=== PATIENT | male | born 1935 | race Caucasian/White ===

== ENCOUNTER 2017-01-05 07:39 | Day surgery (SDC) | payer OTHER, BC ==
[2016-12-21 13:33] VITALS: BMI 26.6
[2017-01-05] MEDS: CIPROFLOXACIN 0.3% EYE DROPS 5 ML BOTTLE ONE ×3 (08:10→08:20)
[2017-01-05] MEDS: CYCLOPENTOLATE 2% OPHTH SOLN 2 ML BOTTLE ONE ×3 (08:10→08:20)
[2017-01-05] MEDS: TROPICAMIDE 1% OPHTH SOLN 15 ML BOTTLE ONE ×3 (08:10→08:20)
[2017-01-05] MEDS: PHENYLEPHRINE 2.5% OPHTH SOLN 15 ML BOTTLE ONE ×3 (08:10→08:20)
[2017-01-05] MEDS ORDERED: MIDAZOLAM HCL 2 MG/2 ML SINGLE DOSE VIAL ONE (09:56)
[2017-01-05 10:39] VITALS: TEMP 98
--- NOTE | 2017-01-05 10:50 | OP ---
DATE OF OPERATION: 01/05/2017 OPERATIVE PROCEDURE: Lens phacoemulsification with posterior chamber intraocular lens placement, right eye. PREOPERATIVE DIAGNOSIS: Visually significant cataract of right eye. POSTOPERATIVE DIAGNOSIS: Visually significant cataract of right eye. SURGEON: Andrew Pardo MD ANESTHESIA: MAC. ANESTHESIOLOGIST: PROCEDURE: The patient was brought to the operating room and placed under monitored anesthesia care by Anesthesia. A drop of Tetracaine was then placed over the right eye. The patient was then prepped and draped in the usual sterile manner. A speculum was then placed over the right eye. The eye was then well irrigated with copious amounts of BSS (balanced salt solution). The operating microscope was then moved into position. A paracentesis was performed using a 15-degree blade. At this point, 0.5 mL of 1% preservative-free lidocaine was injected into the anterior chamber. Amvisc Plus was then injected into the anterior chamber. A clear corneal incision was then formed using a 2.2-mm keratome. A capsulorrhexis was then performed in a continuous circular fashion beginning with a cystotome completed with a Utrata forceps. Hydrodissection was then performed using BSS on a cannula. The phacoemulsification probe was then introduced through the corneal wound and the cataract was removed using the phacoemulsification-chop technique. Approximately 3 seconds of absolute phacoemulsification time was used. The remaining cortex was then removed using irrigation and aspiration with an I/A probe. The capsule was then filled with regular Amvisc and the capsule was noted to be intact. A previously selected foldable posterior chamber intraocular lens was then injected into the capsule through the corneal wound using a lens injector. It was then dialed into position using a Sinskey hook. The Amvisc was then removed using irrigation and aspiration. Miostat was then injected through the paracentesis to constrict the pupil. The paracentesis and corneal wound were then hydrated and noted to be watertight. A drop of Maxitrol was then placed over the eye. The speculum was removed and clear shield was taped over the eye. The patient tolerated the procedure well and there were no surgical complications. The patient was asked to follow up in my office the next day. ANDREW PARDO M.D. SOHEILA/[id number]
[2017-01-05 10:55] VITALS: BP 128/69; PULSE 55
== END 2017-01-05 11:00 | disposition home or self-care (01) ==
LOC: FASU 07:39
PROVIDERS: ATTEND Ophthalmology
PROC: 08RJ3JZ Replacement of Right Lens with Synthetic Substitute, Percutaneous Approach (ICD-10-PCS; principal; 2017-01-05 10:07)
DX: H26.8 Other specified cataract (principal)

== ENCOUNTER 2017-02-23 06:14 | Day surgery (SDC) | payer OTHER, BC ==
[2017-02-21 11:57] VITALS: BMI 26.6
[2017-02-23] MEDS: PHENYLEPHRINE 2.5% OPHTH SOLN 15 ML BOTTLE ONE ×3 (06:55→07:05)
[2017-02-23] MEDS: CIPROFLOXACIN 0.3% EYE DROPS 5 ML BOTTLE ONE ×3 (06:55→07:05)
[2017-02-23] MEDS: TROPICAMIDE 1% OPHTH SOLN 15 ML BOTTLE ONE ×3 (06:55→07:05)
[2017-02-23] MEDS: CYCLOPENTOLATE 2% OPHTH SOLN 2 ML BOTTLE ONE ×3 (06:55→07:05)
[2017-02-23] MEDS ORDERED: CYCLOPENTOLATE 2% OPHTH SOLN 2 ML BOTTLE ONE (07:05)
[2017-02-23] MEDS ORDERED: CIPROFLOXACIN 0.3% EYE DROPS 5 ML BOTTLE ONE (07:05)
[2017-02-23] MEDS ORDERED: PHENYLEPHRINE 2.5% OPHTH SOLN 15 ML BOTTLE ONE (07:05)
[2017-02-23] MEDS ORDERED: TROPICAMIDE 1% OPHTH SOLN 15 ML BOTTLE ONE (07:05)
[2017-02-23] MEDS ORDERED: TETRACAINE 0.5% OPHTH SOLN 2 ML BOTTLE ONE (07:26)
[2017-02-23] MEDS ORDERED: CARBACHOL 0.01% INTRA-OCULAR 1.5 ML VIAL ONE (07:26)
[2017-02-23] MEDS ORDERED: BSS (NA/CA/MG/K) BALANCED SALT SOLUTION OPHTH SOLN 15 ML BOTTLE ONE (07:26)
[2017-02-23] MEDS ORDERED: LIDOCAINE 1% P/F 10 MG/ML VIAL ONE (07:26)
[2017-02-23] MEDS ORDERED: NEO/POLYMYX B SULF/DEXAMETH OPHTHALMIC 5ML BOTTLE ONE (07:26)
[2017-02-23] MEDS ORDERED: MIDAZOLAM HCL 2 MG/2 ML SINGLE DOSE VIAL ONE (08:19)
[2017-02-23 09:11] VITALS: BP 135/80; PULSE 62; TEMP 98
--- NOTE | 2017-02-23 10:04 | OP ---
DATE OF OPERATION: 02/23/2017 OPERATIVE PROCEDURE: Lens Phacoemulsification with Posterior Chamber Intraocular Lens Placement Left Eye PREOPERATIVE DIAGNOSIS: Visually Significant Cataract of Left Eye POSTOPERATIVE DIAGNOSIS: Visually Significant Cataract of Left Eye SURGEON: Andrew Pardo M.D. ANESTHESIA: MAC PROCEDURE: The patient was brought to the operating room and placed under monitored anesthesia care by Anesthesia. A drop of Tetracaine was then placed over the left eye. The patient was then prepped and draped in the usual sterile manner. A speculum was then placed over the left eye. The eye was then well irrigated with copious amounts of BSS (balanced salt solution). The operating microscope was then moved into position. A paracentesis was performed using a 15 degree blade. At this point 0.5 mL of 1% preservative-free lidocaine was injected into the anterior chamber. Amvisc plus was then injected into the anterior chamber. A clear corneal incision was then formed using a 2.2 mm keratome. A capsulorrhexis was then performed in a continuous circular fashion beginning with a cystotome, completed with an Utratas forceps. Hydrodissection was then performed using BSS on a cannula. The phaco probe was then introduced through the corneal wound and the cataract was removed using the phaco chop technique. Approximately 3 seconds of absolute phaco time was used. The remaining cortex was then removed using irrigation and aspiration with an I/A probe. The capsule was then filled with regular Amvisc and the capsule was noted to be intact. A previously selected foldable posterior chamber intraocular lens was then injected into the capsule through the corneal wound using a lens injector. It was then dialed into position using a Sinskey hook. The Amvisc was then removed using irrigation and aspiration. Miostat was then injected through the paracentesis to constrict the pupil. The paracentesis and corneal wound were then hydrated and noted to be water tight. A drop of Maxitrol was then placed over the eye. The speculum was removed and clear shield was taped over the eye. The patient tolerated the procedure well and there were no surgical complications. The patient was asked to follow up in my office the next day. ANDREW PARDO M.D. SOHEILA/[id number]
== END 2017-02-23 09:12 | disposition home or self-care (01) ==
LOC: FASU 06:14
PROVIDERS: ATTEND Ophthalmology
PROC: 08RK3JZ Replacement of Left Lens with Synthetic Substitute, Percutaneous Approach (ICD-10-PCS; principal; 2017-02-23 08:24)
DX: H26.8 Other specified cataract (principal)

== ENCOUNTER 2020-02-13 10:38 | Emergency (ER) | payer OTHER, BC ==
[2020-02-13 10:49] VITALS: TEMP 98.5; BMI 26.6
--- OUTSIDE RECORDS SUMMARY | 2020-02-13 10:53 | XMS ---
:1935 Author Organization [facility] Support Name Relationship Address Phone RE Unavailable Unavailable Unavailable JENNY HOLDEN [address] [id number] [address] Re-disclosure Warning The records that you are about to access may contain information from federally- assisted alcohol or drug abuse programs. If such information is present, then the following federally mandated warning applies: This information has been disclosed to you from records protected by federal confidentiality rules (42 CFR part 2). The federal rules prohibit you from making any further disclosure of this information unless further disclosure is expressly permitted by the written consent of the person to whom it pertains or as otherwise permitted by 42 CFR part 2. A general authorization for the release of medical or other information is NOT sufficient for this purpose. The Federal rules restrict any use of the information to criminally investigate or prosecute any alcohol or drug abuse patient.The records that you are about to access may contain highly sensitive health information, the redisclosure of which is protected by Article 27-F of the [facility] Public Health law. If you continue you may haveaccess to information: Regarding HIV / AIDS; Provided by facilities licensed or operated by the [facility] Office of Mental Health; or Provided by the [facility] Office for People With Developmental Disabilities. If such information is present, then the following [facility] mandated warning applies: This information has been disclosed to you from confidential records which are protected by state law. State law prohibits you from making any further disclosure of this information without the specific written consent of the person to whom it pertains, or as otherwise permitted by law. Any unauthorized further disclosure in violation of state law may result in a fine or mcfp sentence or both. A general authorization for the release of medical or other information is NOT sufficient authorization for further disclosure. Insurance Providers Payer name Policy type Policy ID Covered Covered alliance party's Policy P shruti / Coverage alliance party ID relationship to [employer] ormation type nelson BC PPO [id number] SP [id number] MEDICARE [id number] SP [id number]
--- NOTE | 2020-02-13 11:08 | PDOC ---
History of Present Illness - General Chief Complaint: Injury Stated Complaint: fall Time Seen by Provider: 02/13/20 10:47 - History of Present Illness Initial Comments: 02/13/20 11:11 Chief complaint: Fall, with injuries to the head and finger HPI: Patient was in the parking lot at his residence, walking home from town, tripped and struck his head and finger against a parked car. Denies lightheadedness, dizziness, vertigo, loss of consciousness, or residual thought or memory disturbance. Review of systems: Denies fever/chills, URI symptoms, sore throat, cough, chest pain, shortness of breath, abdominal pain, nausea, vomiting, diarrhea, visual or focal neurologic symptoms, unsteadiness of gait, hematemesis, melena, bloody stool, urinary tract symptoms. Admits chronic wheezing for which he uses an inhaler, no exacerbation recently. 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 High blood pressure. Elevated cholesterol. COPD. Dementia. History: Mild dementia, under neurologic evaluation as an outpatient. Lives at home with his , who is healthy. Takes care of himself. Goes out for walks daily. Smoked earlier in life, none recently. No alcohol or other drugs. No sedatives hypnotics. Family history: Reviewed and noncontributory Physical exam: Mildly confused but oriented to person and place, cooperative, coherent. Denies headache, neck pain, or pain in his finger. Afebrile, vital signs normal Head: Large abrasion of the right frontal scalp. No punctures or laceration. No swelling, induration, or hematoma below the abrasion. Large contusion, hematoma of the right lower forehead extending to the right superior orbit and upper eyelid. No palpable deformity or crepitus of the orbit itself. V2 sensation is intact. PERRLA 3 mm, fundi benign with sharp disc margins and good central venous pulsations. ENT clear. No other visible or palpable deformities or injuries to the facial structure. Neck without point tenderness or deformity. No spasm. Full range of motion without limitation or pain. No bruits masses or nodes Lungs: Bilateral end expiratory wheezes, mild to moderate, but no tachypnea or dyspnea. No chest wall or rib cage deformity or tenderness CV audible rumble in the area of the mitral valve. No murmurs rubs or gallops. 90 and regular. Pulses full and symmetric. No edema. No JVD. No bruits. Abdomen soft nontender without mass organomegaly. Bowel sounds normal. Nondistended. No CVAT. Spine and pelvis without point tenderness or deformity. Avulsion type laceration of the right third finger, distal phalanx, volar pulp, not involving the nail or the DIP joint. Full flexion of the DIP against resistance. Full extension against resistance. Capillary refill intact. No sensory deficit to the fingertip Extremities: No visible or palpable signs of trauma. Full range of motion of the shoulders elbows wrists hips knees and ankles without limitation or pain. Neurological C2 to 12 intact. Generalized weakness but no focal sensory or motor deficits. Mild confusion consistent with dementia, which is unchanged according to his . Assessment: Fall, mechanical, no suggestion of acute cardiac or neurologic event. Contusions and abrasions to the face and scalp. Laceration to the finger. Plan: CBC, chemistries, cardiac enzymes, EKG, chest x-ray, repair of laceration, observation, further evaluation depending on results of studies. Past History - Medical History Allergies/Adverse Reactions: Allergies Allergy/AdvReac Type Severity Reaction Status Date / Time No Known Allergies Allergy Verified 02/13/20 10:39 Home Medications: Ambulatory Orders Cholecalciferol (Vitamin D3) [Vitamin D3 -] 1,000 unit PO DAILY 12/21/16 Dabigatran Etexilate Mesylate [Pradaxa -] 75 mg PO BID 12/21/16 Ferrous Gluconate [Fergon -] 324 mg PO DAILY 12/21/16 Metoprolol Succinate [Toprol XL -] 25 mg PO DAILY 12/21/16 Metoprolol Succinate [Toprol XL -] 50 mg PO HS 12/21/16 Thiamine HCl [Vitamin B-1] 100 mg PO DAILY 12/21/16 Anemia: No Asthma: No Cancer: No Cardiac Disorders: Yes ( valves sx) CVA: No COPD: No CHF: No Dementia: No Diabetes: No GI Disorders: No Disorders: No HTN: Yes Hypercholesterolemia: No Liver Disease: No Seizures: No Thyroid Disease: No - Surgical History Abdominal Surgery: No Appendectomy: No Cardiac Surgery: Yes (valves) Cholecystectomy: No Lung Surgery: No Neurologic Surgery: No Orthopedic Surgery: No - Psycho-Social/Smoking History Smoking History: Never smoked Have you smoked in the past 12 months: No If you are a former smoker, when did you quit?: 40 yrs ago - Substance Abuse Hx (Audit-C & DAST Scrn) How often the patient has a drink containing alcohol: Never Score: In Men: 4 or > Positive; In Women: 3 or > Positive: 0 Screen Result (Pos requires Nsg. Audit-10AR): Negative In the last yr the pt used illegal drug/Rx for NonMed reason: No Score: Yes response is considered Positive: 0 Screen Result (Positive result requires Nsg. DAST-10): Negative *Physical Exam - Vital Signs Last Vital Signs Temp Pulse Resp BP Pulse Ox 98.5 F 65 18 163/84 98 02/13/20 10:38 02/13/20 10:38 02/13/20 10:38 02/13/20 10:38 02/13/20 10:38 ED Treatment Course - LABORATORY CBC & Chemistry Diagram: 02/13/20 11:19 02/13/20 11:10 Medical Decision Making - Medical Decision Making 02/13/20 15:27 EKG: Normal sinus rhythm 62/min. Normal axes and intervals. No ST-T wave changes. Normal EKG Chest x-ray: COPD, chronic lung changes, no acute infiltrates or effusions Head CT: Negative for acute trauma. Atrophy with other chronic changes are present Laboratory: Troponin negative. Only significant abnormality is a white count of 22,000, most likely due to the stress of trauma. There appears to be no symp toms or sign of infection. Patient and were informed of the abnormal white count, told it was likely due to stress but there was a small chance of an occult infection, and that it should be repeated in 24 hours by primary physician. They agreed to call Dr. Carreon, transmit information and obtain repeat white blood count. If unsuccessful, instructed to return to the emergency room. Patient's forehead abrasion was cleansed with normal saline, dressed with bacitracin. He is instructed to use ice on the hematoma. Procedure note: Repair of laceration right third finger. Digital block 1% lidocaine plain, good anesthesia provided Wound was thoroughly scrubbed and irrigated with normal saline. Minimal debridement of devitalized skin was performed, with sharp and vital wound margins. Wound was explored and found to be superficial. There was no exposed bone or other deep structure, and no deep punctures. Skin was closed with 4-0 nylon interrupted sutures. Dressed with bacitracin, 2 x 2, and tube gauze. Instructed to change the dressing in 3 days. Return immediately if there is sign of infection. Otherwise return for suture removal in 10 days. Head injury instructions were given. To return to the ER if further symptoms develop. Fully alert and ambulatory, in no pain or other distress at discharge with to follow-up as directed Discharge - Discharge Information Problems reviewed: Yes Clinical Impression/Diagnosis: Head injury Qualifiers: Encounter type: initial encounter Qualified Code(s): S09.90XA - Unspecified injury of head, initial encounter Finger laceration Qualifiers: Encounter type: initial encounter Finger: middle finger Damage to nail status: without damage Foreign body presence: without foreign body Laterality: right Qualified Code(s): S61.212A - Laceration without foreign body of right middle finger without damage to nail, initial encounter Condition: Improved Disposition: HOME - Admission No - Follow up/Referral Referrals: Brisa Carreon [Primary Care Provider] - 2 Days - Patient Discharge Instructions Patient Printed Discharge Instructions: DI for Laceration Repair -- Simple, DI for Closed Head Injury Additional Instructions: Keep finger clean and dry. Change dressing in 3 days. Return to ER for wound check if there is sign of infection, such as increased pain, swelling, redness, warmth, or drainage. If the wound is healing well, return in 10 days for removal of sutures. Head injury instructions as prescribed Continue to use ice intermittently today on the forehead and scalp. Wound care of the abrasion as discussed. Your laboratory work showed an elevated white blood count of 22,000+. This is most likely due to the stress of your injury. There does not seem to be any obvious sign of infection. However, it is important that your white blood count be rechecked in 1 to 2 days by your primary physician to make sure it has decreased to a normal value and no sign of infection has developed. - Post Discharge Activity
[2020-02-13 11:52] LABS: PLATELET COUNT 351 K/MM3 (134-434)
[2020-02-13 11:58] LABS: HEMATOCRIT 42.6 % (35.4-49); HEMOGLOBIN 14.5 GM/dl (11.7-16.9); MCH 30.5 pg (25.7-33.7); MEAN CELL VOLUME 89.7 fl (80-96); MEAN PLT VOLUME 8.4 fl (7.5-11.1); RBC 4.75 M/mm3 (4.00-5.60); RDW 13.5 % (11.9-15.9); WHITE BLOOD COUNT 22.4 K/mm3 (4.0-10.8)
[2020-02-13 11:59] LABS: ALK PHOS 60 U/L (45-117); ANION GAP 7 MMOL/L (8-16); BILIRUBIN,TOTAL 1.2 mg/dl (0.2-1); CALCIUM 8.8 mg/dl (8.5-10); CHLORIDE 104 mmol/L (98-107); CO2 26 mmol/L (21-32); CREATININE 1.1 mg/dl (0.55-1.3); GLUCOSE,RANDOM 116 mg/dl (74-106); POTASSIUM 4.4 mmol/L (3.5-5.1); SGOT/AST 26 U/L (15-37); SGPT/ALT 17 U/L (13-61); SODIUM 137 mmol/L (136-145); TOT PROT 7.1 g/dl (6.4-8.2)
[2020-02-13] MEDS ORDERED: ACETAMINOPHEN 325 MG TABLET (FP) ONE (12:22)
[2020-02-13] MEDS ORDERED: ACETAMINOPHEN 325 MG TABLET (FP) PO ONE (12:25)
[2020-02-13 13:51] VITALS: BP 161/76; PULSE 60
[2020-02-13 14:10] LABS: PLATELET ESTIMATE ADEQUATE
--- NOTE | 2020-02-14 11:50 | EKG ---
Test Reason : Blood Pressure : / mmHG Vent. Rate : 062 BPM Atrial Rate : 062 BPM P-R Int : 166 ms QRS Dur : 086 ms QT Int : 420 ms P-R-T Axes : 007 -15 030 degrees QTc Int : 426 ms POOR DATA QUALITY, INTERPRETATION MAY BE ADVERSELY AFFECTED NORMAL SINUS RHYTHM NORMAL ECG NO PREVIOUS ECGS AVAILABLE Confirmed by LYLY BARRERA MD ([id number]) on 02/14/2020 11:49:53 AM Referred By: TOM FORTUNE Confirmed By:LYLY BARRERA MD
== END 2020-02-13 13:44 | disposition home or self-care (01) ==
LOC: FER 10:38
DX: S09.90XA Unspecified injury of head, initial encounter (principal); S61.212A Laceration without foreign body of right middle finger without damage to nail, initial encounter
CPT/HCPCS: 36415; 70450-TC; 71045-TC-FY; 80053; 82550; 84484; 85025; 93005; 99284-25

== ENCOUNTER 2021-01-28 15:27 | Inpatient (IN) | payer OTHER, BC ==
[2021-01-28 15:59] VITALS: BMI 27.3
[2021-01-28] MEDS ORDERED: DIPHTH,PERTUSS(ACELL),TET 0.5 ML DISP.SYRIN IM ONE ×2 (16:58→17:00)
[2021-01-28] MEDS ORDERED: LACTATED RINGERS SOLUTION 1000 ML INFUS.BAG IV ONE ×2 (17:03→19:01)
[2021-01-28 17:31] LABS: HEMATOCRIT 41.7 % (35.4-49); HEMOGLOBIN 13.9 GM/dL (11.7-16.9); MCH 29.9 pg (25.7-33.7); MCHC 33.2 g/dl (32.0-35.9); MEAN CELL VOLUME 90.1 fl (80-96); MEAN PLT VOLUME 8.8 fl (7.5-11.1); PLATELET COUNT 199 10^3/uL (134-434); RBC 4.63 M/mm3 (4.00-5.60); RDW 14.5 % (11.9-15.9); WHITE BLOOD COUNT 18.8 K/mm3 (4.0-10.0)
[2021-01-28 17:36] LABS: INR 1.2 (0.83-1.09); PROTHROMBIN TIME (PATIENT) 14.1 SEC (9.7-13.0)
[2021-01-28 17:38] LABS: ACTIVATED PTT 26.7 SECONDS (25.2-36.5)
[2021-01-28 17:51] LABS: CHLORIDE 112 mmol/L (98-107); SODIUM 148 mmol/L (136-145)
[2021-01-28 17:53] LABS: CALCIUM 10.1 mg/dL (8.5-10.1)
[2021-01-28 17:54] LABS: ALBUMIN 3.4 g/dl (3.4-5.0); ANION GAP 13 MMOL/L (8-16); BLOOD UREA NITROGEN 34.2 mg/dL (7-18); CO2 23 mmol/L (21-32); GLUCOSE,RANDOM 112 mg/dL (74-106); MAGNESIUM 2.6 mg/dL (1.8-2.4)
[2021-01-28 17:57] LABS: CREATININE 1.6 mg/dL (0.55-1.3); PHOSPHOROUS 2.2 mg/dL (2.5-4.9); SGOT/AST 192 U/L (15-37); SGPT/ALT 41 U/L (13-61)
[2021-01-28 17:58] LABS: TOT PROT 7.2 g/dl (6.4-8.2)
[2021-01-28 18:00] LABS: ALK PHOS 61 U/L (45-117)
[2021-01-28 18:37] LABS: ANISOCYTOSIS 1+; MACROCYTOSIS 0; PLATELET ESTIMATE NORMAL
[2021-01-28] MEDS ORDERED: ASPIRIN 81 MG CHEWABLE TABLETS PO ONE (19:01)
[2021-01-28] MEDS ORDERED: HALOPERIDOL LACTATE 5 MG/ML IM PRN (19:02)
[2021-01-28] MEDS ORDERED: HALOPERIDOL LACTATE 5 MG/ML ONE (19:02)
[2021-01-28 20:20] LABS: EPI CELLS 6 /uL (0-25.1); HYALINE CASTS 6 /uL (0-3.1); PH,URINE 5.5 (5.0-8.0); URINE APPEARANCE CLOUDY; URINE BACTERIA 0 /uL (0-1359); URINE BILIRUBIN 1+ (NEGATIVE); URINE COLOR ORANGE; URINE GLUCOSE (UA) NEGATIVE (NEGATIVE); URINE KETONE TRACE (NEGATIVE); URINE LEUK ESTERASE 1+ (NEGATIVE); URINE NITRITE NEGATIVE (NEGATIVE); URINE PROTEIN 3+ (NEGATIVE); URINE UROBILINOGEN 0.2 mg/dL (0.2-1.0); URINE WBC 6 /uL (0-25.8)
[2021-01-28] MEDS ORDERED: ASPIRIN 81 MG CHEWABLE TABLETS ONE (20:26)
[2021-01-28 20:35] LABS: BILIRUBIN,DIRECT 0.6 mg/dL (0.0-0.2)
[2021-01-28 21:54] LABS: URINE RBC 75.3 /uL (0-23.9); YEAST moderate (NEGATIVE)
[2021-01-28 22:47] LABS: CALCIUM 9.4 mg/dL (8.5-10.1)
[2021-01-28 22:48] LABS: BLOOD UREA NITROGEN 35.3 mg/dL (7-18)
[2021-01-28 22:51] LABS: CREATININE 1.6 mg/dL (0.55-1.3)
[2021-01-29] MEDS ORDERED: LACTATED RINGERS SOLUTION 1,000 ML/1,000 ML INFUS.BAG IV SCH (03:15)
[2021-01-29 06:04] LABS: BASO % 0.1 % (0-2.0); CHOLESTEROL 164 mg/dL (50-200); HEMATOCRIT 40.9 % (35.4-49); HEMOGLOBIN 13.6 GM/dL (11.7-16.9); LYMPH % 6.5 % (8-40); MCH 30.3 pg (25.7-33.7); MCHC 33.2 g/dl (32.0-35.9); MEAN CELL VOLUME 91.4 fl (80-96); MEAN PLT VOLUME 8.8 fl (7.5-11.1); MONO % 8.1 % (3.8-10.2); NEUT % 85.3 % (42.8-82.8); PLATELET COUNT 188 10^3/uL (134-434); RBC 4.48 M/mm3 (4.00-5.60); RDW 14.5 % (11.9-15.9); TRIGLYCERIDES 100 mg/dL (0-150); WHITE BLOOD COUNT 15.9 K/mm3 (4.0-10.0)
[2021-01-29 06:05] LABS: LDL CHOLESTEROL (ONLY SJRH) 80 mg/dL (5-100)
[2021-01-29 06:06] LABS: INR 1.11 (0.83-1.09)
[2021-01-29 06:07] LABS: HDL CHOLESTEROL 72 mg/dL (40-60)
[2021-01-29 07:39] LABS: CHLORIDE 112 mmol/L (98-107); SODIUM 146 mmol/L (136-145)
[2021-01-29 07:40] LABS: ALBUMIN 3.1 g/dl (3.4-5.0); ALK PHOS 57 U/L (45-117); ANION GAP 11 MMOL/L (8-16); BILIRUBIN,TOTAL 2.7 mg/dL (0.2-1); BLOOD UREA NITROGEN 35.1 mg/dL (7-18); CALCIUM 9.3 mg/dL (8.5-10.1); CO2 23 mmol/L (21-32); CREATININE 1.5 mg/dL (0.55-1.3); GLUCOSE,RANDOM 116 mg/dL (74-106); MAGNESIUM 2.1 mg/dL (1.8-2.4); SGOT/AST 498 U/L (15-37); SGPT/ALT 82 U/L (13-61); TOT PROT 6.6 g/dl (6.4-8.2)
[2021-01-29] MEDS: CEFTRIAXONE 1 GM in DEXTROSE 5%-WATER - 50 ML IVPB SCH ×2 (09:17→09:25)
[2021-01-29] MEDS: HEPARIN NA (PORCINE) 5,000 UNITS/ML 1ML VIAL SQ SCH ×4 (09:18→21:51)
[2021-01-29] MEDS ORDERED: cefTRIAXone SODIUM 1 GM VIAL ONE (09:20)
[2021-01-29] MEDS ORDERED: DEXTROSE 5%-WATER - 50 ML IVPB ONE (09:21)
[2021-01-29] MEDS: ESCITALOPRAM OXALATE 20 MG TABLET PO SCH (09:24)
[2021-01-29] MEDS ORDERED: SODIUM CHLORIDE 0.45% 1,000 ML IV SCH (12:45)
[2021-01-29] MEDS ORDERED: GALANTAMINE HBR 12 MG PO SCH (14:15)
[2021-01-30] MEDS: HEPARIN NA (PORCINE) 5,000 UNITS/ML 1ML VIAL SQ SCH ×3 (06:46→21:49)
[2021-01-30] MEDS: busPIRone HCL 10 MG TABLET (FP) PO SCH ×3 (06:47→21:49)
[2021-01-30 07:20] LABS: BASO % 0.2 % (0-2.0); HEMATOCRIT 41.2 % (35.4-49); HEMOGLOBIN 13.6 GM/dL (11.7-16.9); LYMPH % 6.7 % (8-40); MCH 30.5 pg (25.7-33.7); MCHC 33.1 g/dl (32.0-35.9); MEAN CELL VOLUME 92.2 fl (80-96); MEAN PLT VOLUME 9.2 fl (7.5-11.1); MONO % 8.2 % (3.8-10.2); NEUT % 84.9 % (42.8-82.8); PLATELET COUNT 198 10^3/uL (134-434); RBC 4.47 M/mm3 (4.00-5.60); RDW 14.6 % (11.9-15.9)
[2021-01-30 08:05] LABS: ALBUMIN 2.8 g/dl (3.4-5.0)
[2021-01-30 08:07] LABS: BLOOD UREA NITROGEN 37.4 mg/dL (7-18)
[2021-01-30 08:10] LABS: BILIRUBIN,TOTAL 2.1 mg/dL (0.2-1); CREATININE 1.2 mg/dL (0.55-1.3); PHOSPHOROUS 3.1 mg/dL (2.5-4.9); TOT PROT 6.2 g/dl (6.4-8.2)
[2021-01-30 08:12] LABS: MAGNESIUM 2.3 mg/dL (1.8-2.4)
[2021-01-30] MEDS ORDERED: cefTRIAXone SODIUM 1 GM VIAL ONE (08:19)
[2021-01-30] MEDS ORDERED: DEXTROSE 5%-WATER - 50 ML IVPB ONE (08:20)
[2021-01-30] MEDS: CEFTRIAXONE 1 GM in DEXTROSE 5%-WATER - 50 ML IVPB SCH (09:29)
[2021-01-30] MEDS: ESCITALOPRAM OXALATE 20 MG TABLET PO SCH (09:30)
[2021-01-30] MEDS: TAMSULOSIN HCL 0.4 MG CAP PO SCH (13:39)
[2021-01-30] MEDS ORDERED: METOPROLOL TARTRATE 5 MG/5 ML VIAL IVPUSH PRN (16:17)
[2021-01-30] MEDS ORDERED: METOPROLOL TARTRATE 5 MG/5 ML VIAL ONE (16:30)
[2021-01-30] MEDS ORDERED: dilTIAZem HCL 50 MG/10 ML - 10 ML VIAL IVPUSH ONE (18:58)
[2021-01-31] MEDS: HEPARIN NA (PORCINE) 5,000 UNITS/ML 1ML VIAL SQ SCH ×3 (05:30→21:58)
[2021-01-31] MEDS: busPIRone HCL 10 MG TABLET (FP) PO SCH ×3 (05:30→21:58)
[2021-01-31 08:27] LABS: HEMATOCRIT 39.3 % (35.4-49); HEMOGLOBIN 13.2 GM/dL (11.7-16.9); MCH 30.3 pg (25.7-33.7); MCHC 33.6 g/dl (32.0-35.9); MEAN CELL VOLUME 90.4 fl (80-96); MEAN PLT VOLUME 9.1 fl (7.5-11.1); PLATELET COUNT 182 10^3/uL (134-434); RBC 4.35 M/mm3 (4.00-5.60); RDW 14.6 % (11.9-15.9); WHITE BLOOD COUNT 12.6 K/mm3 (4.0-10.0)
[2021-01-31 08:47] LABS: ALBUMIN 2.5 g/dl (3.4-5.0); CALCIUM 8.3 mg/dL (8.5-10.1)
[2021-01-31 08:48] LABS: BLOOD UREA NITROGEN 39.5 mg/dL (7-18); MAGNESIUM 2.2 mg/dL (1.8-2.4); PHOSPHOROUS 3.1 mg/dL (2.5-4.9)
[2021-01-31 08:50] LABS: BILIRUBIN,TOTAL 1.3 mg/dL (0.2-1); CREATININE 1.1 mg/dL (0.55-1.3); TOT PROT 6.1 g/dl (6.4-8.2)
[2021-01-31] MEDS ORDERED: DEXTROSE 5%-WATER - 50 ML IVPB ONE (09:43)
[2021-01-31] MEDS ORDERED: cefTRIAXone SODIUM 1 GM VIAL ONE (09:43)
[2021-01-31] MEDS: CEFTRIAXONE 1 GM in DEXTROSE 5%-WATER - 50 ML IVPB SCH (10:27)
[2021-01-31] MEDS: ESCITALOPRAM OXALATE 20 MG TABLET PO SCH (10:28)
[2021-01-31] MEDS: PANTOPRAZOLE 20 MG TABLET PO SCH (10:28)
[2021-01-31] MEDS: ASPIRIN 81 MG CHEWABLE TABLETS PO SCH (10:29)
[2021-01-31] MEDS: TAMSULOSIN HCL 0.4 MG CAP PO SCH (10:29)
[2021-01-31 11:59] LABS: PLATELET ESTIMATE ADEQUATE
[2021-01-31] MEDS: metoPROLOL SUCCINATE 25 MG TAB.SR.24H (FP) PO SCH (17:49)
[2021-02-01] MEDS: HEPARIN NA (PORCINE) 5,000 UNITS/ML 1ML VIAL SQ SCH ×3 (05:09→21:26)
[2021-02-01] MEDS: busPIRone HCL 10 MG TABLET (FP) PO SCH ×3 (05:09→21:26)
[2021-02-01] MEDS: metoPROLOL SUCCINATE 25 MG TAB.SR.24H (FP) PO SCH (10:12)
[2021-02-01] MEDS: ASPIRIN 81 MG CHEWABLE TABLETS PO SCH (10:12)
[2021-02-01] MEDS: TAMSULOSIN HCL 0.4 MG CAP PO SCH (10:12)
[2021-02-01] MEDS: ESCITALOPRAM OXALATE 20 MG TABLET PO SCH (10:12)
[2021-02-01] MEDS: PANTOPRAZOLE 20 MG TABLET PO SCH (10:12)
[2021-02-02] MEDS: HEPARIN NA (PORCINE) 5,000 UNITS/ML 1ML VIAL SQ SCH ×3 (05:28→21:45)
[2021-02-02] MEDS: busPIRone HCL 10 MG TABLET (FP) PO SCH ×3 (05:28→21:43)
[2021-02-02 08:38] LABS: BASO % 0.2 % (0-2.0); EOS % 0.6 % (0-4.5); HEMATOCRIT 39.6 % (35.4-49); HEMOGLOBIN 13.2 GM/dL (11.7-16.9); LYMPH % 9.1 % (8-40); MCH 30.3 pg (25.7-33.7); MCHC 33.4 g/dl (32.0-35.9); MEAN CELL VOLUME 90.7 fl (80-96); MEAN PLT VOLUME 9.1 fl (7.5-11.1); MONO % 8.9 % (3.8-10.2); NEUT % 81.2 % (42.8-82.8); PLATELET COUNT 189 10^3/uL (134-434); RBC 4.36 M/mm3 (4.00-5.60); RDW 13.9 % (11.9-15.9); WHITE BLOOD COUNT 13.3 K/mm3 (4.0-10.0)
[2021-02-02 08:54] LABS: CALCIUM 8.7 mg/dL (8.5-10.1)
[2021-02-02 08:55] LABS: ALBUMIN 2.3 g/dl (3.4-5.0); BLOOD UREA NITROGEN 30.2 mg/dL (7-18)
[2021-02-02 09:00] LABS: BILIRUBIN,TOTAL 1.6 mg/dL (0.2-1)
[2021-02-02] MEDS: PANTOPRAZOLE 20 MG TABLET PO SCH (09:00)
[2021-02-02] MEDS: TAMSULOSIN HCL 0.4 MG CAP PO SCH (09:00)
[2021-02-02] MEDS: ESCITALOPRAM OXALATE 20 MG TABLET PO SCH (09:00)
[2021-02-02] MEDS: ASPIRIN 81 MG CHEWABLE TABLETS PO SCH (09:00)
[2021-02-02] MEDS: metoPROLOL SUCCINATE 25 MG TAB.SR.24H (FP) PO SCH (09:00)
[2021-02-03] MEDS: busPIRone HCL 10 MG TABLET (FP) PO SCH ×3 (06:07→21:21)
[2021-02-03] MEDS: HEPARIN NA (PORCINE) 5,000 UNITS/ML 1ML VIAL SQ SCH ×3 (06:08→21:22)
[2021-02-03 07:03] LABS: BASO % 0.3 % (0-2.0); EOS % 1.2 % (0-4.5); HEMATOCRIT 40.5 % (35.4-49); HEMOGLOBIN 13.5 GM/dL (11.7-16.9); LYMPH % 11.9 % (8-40); MCH 30.5 pg (25.7-33.7); MCHC 33.5 g/dl (32.0-35.9); MEAN CELL VOLUME 91.2 fl (80-96); MEAN PLT VOLUME 9.4 fl (7.5-11.1); MONO % 8.1 % (3.8-10.2); NEUT % 78.5 % (42.8-82.8); PLATELET COUNT 191 10^3/uL (134-434); RBC 4.44 M/mm3 (4.00-5.60); RDW 14.2 % (11.9-15.9); WHITE BLOOD COUNT 9.4 K/mm3 (4.0-10.0)
[2021-02-03 07:27] LABS: ALBUMIN 2.2 g/dl (3.4-5.0); BLOOD UREA NITROGEN 26.4 mg/dL (7-18); CALCIUM 9.2 mg/dL (8.5-10.1)
[2021-02-03 07:28] LABS: MAGNESIUM 1.7 mg/dL (1.8-2.4)
[2021-02-03 07:31] LABS: CREATININE 0.9 mg/dL (0.55-1.3)
[2021-02-03 07:32] LABS: BILIRUBIN,TOTAL 1.2 mg/dL (0.2-1); TOT PROT 5.9 g/dl (6.4-8.2)
[2021-02-03] MEDS ORDERED: MAGNESIUM SULF 50% (8.12 MEQ/2 ML-1 GM VIAL) IVPB ONE (07:55)
[2021-02-03] MEDS: TAMSULOSIN HCL 0.4 MG CAP PO SCH (08:54)
[2021-02-03] MEDS: PANTOPRAZOLE 20 MG TABLET PO SCH (09:07)
[2021-02-03] MEDS: metoPROLOL SUCCINATE 25 MG TAB.SR.24H (FP) PO SCH (09:07)
[2021-02-03] MEDS: ESCITALOPRAM OXALATE 20 MG TABLET PO SCH (09:07)
[2021-02-03] MEDS: ASPIRIN 81 MG CHEWABLE TABLETS PO SCH (09:07)
[2021-02-03] MEDS ORDERED: cefTRIAXone SODIUM 1 GM VIAL ONE (10:20)
[2021-02-03] MEDS ORDERED: DEXTROSE 5%-WATER - 50 ML IVPB ONE (10:21)
[2021-02-03] MEDS: CEFTRIAXONE 1 GM in DEXTROSE 5%-WATER - 50 ML IVPB SCH (10:48)
[2021-02-03] MEDS ORDERED: MAGNESIUM OXIDE 400 MG TABLET (FP) PO ONE (13:28)
[2021-02-04] MEDS: HEPARIN NA (PORCINE) 5,000 UNITS/ML 1ML VIAL SQ SCH (07:04)
[2021-02-04] MEDS: busPIRone HCL 10 MG TABLET (FP) PO SCH (07:04)
[2021-02-04] MEDS ORDERED: cefTRIAXone SODIUM 1 GM VIAL ONE (08:23)
[2021-02-04] MEDS ORDERED: DEXTROSE 5%-WATER - 50 ML IVPB ONE (08:23)
[2021-02-04] MEDS: TAMSULOSIN HCL 0.4 MG CAP PO SCH (09:15)
[2021-02-04] MEDS: metoPROLOL SUCCINATE 25 MG TAB.SR.24H (FP) PO SCH (09:15)
[2021-02-04] MEDS: PANTOPRAZOLE 20 MG TABLET PO SCH (09:15)
[2021-02-04] MEDS: CEFTRIAXONE 1 GM in DEXTROSE 5%-WATER - 50 ML IVPB SCH (09:16)
[2021-02-04] MEDS: ESCITALOPRAM OXALATE 20 MG TABLET PO SCH (09:16)
[2021-02-04] MEDS: ASPIRIN 81 MG CHEWABLE TABLETS PO SCH (09:16)
[2021-02-04 09:24] VITALS: BP 133/87; PULSE 88; TEMP 98.3
[2021-02-04] MEDS ORDERED: MAGNESIUM OXIDE 400 MG TABLET (FP) PO ONE (12:35)
== END 2021-02-04 13:00 | DRG 558 ==
LOC: JER 15:27 → JERBED 19:37 → J7W 01-29 02:56 → J4W 01-29 09:54
PROVIDERS: ADMIT Internal Medicine
DX: M62.82 Rhabdomyolysis (principal); N17.9 Acute kidney failure, unspecified; N39.0 Urinary tract infection, site not specified; E87.0 Hyperosmolality and hypernatremia; I24.8 Other forms of acute ischemic heart disease; J44.9 Chronic obstructive pulmonary disease, unspecified; F03.90 Unspecified dementia, unspecified severity, without behavioral disturbance, psychotic disturbance, mood disturbance, and anxiety; R29.6 Repeated falls; R45.1 Restlessness and agitation; E86.0 Dehydration; Z95.2 Presence of prosthetic heart valve; I10 Essential (primary) hypertension; E78.5 Hyperlipidemia, unspecified; M48.00 Spinal stenosis, site unspecified; R80.9 Proteinuria, unspecified; R41.0 Disorientation, unspecified; I51.7 Cardiomegaly; I48.91 Unspecified atrial fibrillation; R74.01 Elevation of levels of liver transaminase levels; F32.9 Major depressive disorder, single episode, unspecified; N40.0 Benign prostatic hyperplasia without lower urinary tract symptoms; R62.7 Adult failure to thrive; R33.9 Retention of urine, unspecified; D72.829 Elevated white blood cell count, unspecified
CPT/HCPCS: 36415; 70450-TC; 71045-TC-FY; 72125-TC; 72170-TC-FY; 76700-TC; 80048; 80053; 80061; 80307; 81003; 82248; 82550; 82553; 82570; 83735; 84100; 84156; 84300; 84443; 84484; 85025; 85027; 85610; 85730; 86850; 86900; 86901; 87086; 90715; 93005; 93010; 93306-TC; 93880-TC; 97116-GP; 97161-GP; 99285-25; C9803; J1644; U0003; U0005

== ENCOUNTER 2021-09-03 07:46 | Emergency (ER) | payer OTHER, BC ==
[2021-09-03 08:05] VITALS: BMI 30.5
[2021-09-03] MEDS ORDERED: LIDO 2%/EPI 1:200000 PRESRVFRE (20 ML SDVIAL) INF ONE (08:37)
[2021-09-03] MEDS ORDERED: LIDOCAINE HCL 2% (20ML MULTI-DOSE VIAL) ONE (08:45)
[2021-09-03 09:13] LABS: BASO % 0.1 % (0-2.0); EOS % 0.4 % (0-4.5); HEMOGLOBIN 12.9 GM/dL (11.7-16.9); LYMPH % 17.3 % (8-40); MCHC 33.2 g/dl (32.0-35.9); MEAN CELL VOLUME 90.4 fl (80-96); MEAN PLT VOLUME 8.6 fl (7.5-11.1); MONO % 7.8 % (3.8-10.2); NEUT % 74.4 % (42.8-82.8); PLATELET COUNT 253 10^3/uL (134-434); RBC 4.31 M/mm3 (4.00-5.60); RDW 14.4 % (11.9-15.9); WHITE BLOOD COUNT 9.3 K/mm3 (4.0-10.0)
[2021-09-03 09:19] LABS: INR 1.03 (0.83-1.09); PROTHROMBIN TIME (PATIENT) 11.9 SEC (9.7-13.0)
[2021-09-03 09:22] LABS: ACTIVATED PTT 31.5 SECONDS (25.2-36.5)
[2021-09-03 10:00] LABS: CALCIUM 9.3 mg/dL (8.5-10.1)
[2021-09-03 10:01] LABS: ALBUMIN 3.5 g/dl (3.4-5.0); BLOOD UREA NITROGEN 31.5 mg/dL (7-18)
[2021-09-03 10:04] LABS: PHOSPHOROUS 3.3 mg/dL (2.5-4.9)
[2021-09-03 12:35] VITALS: BP 121/48; PULSE 75; TEMP 97.7
== END 2021-09-03 12:30 | disposition home or self-care (01) ==
LOC: JER 07:46
DX: S09.90XA Unspecified injury of head, initial encounter (principal); R60.0 Localized edema
CPT/HCPCS: 36415; 70450-TC; 71045-TC-FY; 72125-TC; 80053; 84100; 85025; 85610; 85730; 93005; 93010; 93971-TC; 99285-25

== ENCOUNTER 2021-09-13 21:36 | Inpatient (IN) | payer OTHER, BC ==
[2021-09-13 22:00] VITALS: BMI 25.8
[2021-09-13] MEDS ORDERED: SODIUM CHLORIDE 2,381 ML IV ONE (22:06)
[2021-09-13] MEDS ORDERED: ACETAMINOPHEN 1000 MG/100 ML BAG IVPB ONE (22:09)
[2021-09-13] MEDS ORDERED: PIPERACILLIN/TAZOB 4.5 GM 4.5 GM in DEXTROSE 5%-WATER 100 ML IVPB ONE (22:09)
[2021-09-13] MEDS ORDERED: VANCOMYCIN 1 GM in D5W (PRE-DOCKED) 1,000 MG/250 ML IVPB ONE (22:09)
[2021-09-13] MEDS ORDERED: PIPERACILLIN/TAZOB 4.5 GM 4.5 GM/100 ML BAG IVPB ONE (22:47)
[2021-09-13] MEDS ORDERED: ACETAMINOPHEN INJECTION 100 ML IVPB ONE (22:47)
[2021-09-13 22:51] LABS: BASO % 0.1 % (0-2.0); HEMATOCRIT 33.4 % (35.4-49); HEMOGLOBIN 11.3 GM/dL (11.7-16.9); LYMPH % 4.5 % (8-40); MCHC 33.9 g/dl (32.0-35.9); MEAN CELL VOLUME 88.6 fl (80-96); MEAN PLT VOLUME 8.1 fl (7.5-11.1); MONO % 8.7 % (3.8-10.2); NEUT % 86.7 % (42.8-82.8); PLATELET COUNT 235 10^3/uL (134-434); RBC 3.77 M/mm3 (4.00-5.60); RDW 14.1 % (11.9-15.9); VENOUS BASE EXCESS 0.4 mmol/L (-2-2); VENOUS O2 SATURATION 92.4 % (70-80); VENOUS PCO2 43.2 mmHg (38-52); VENOUS PH 7.39 (7.310-7.410); WHITE BLOOD COUNT 14.3 K/mm3 (4.0-10.0)
[2021-09-13 22:58] LABS: EPI CELLS 14 /uL (0-25.1); HYALINE CASTS 5 /uL (0-3.1); INR 1.26 (0.83-1.09); PROTHROMBIN TIME (PATIENT) 14.5 SEC (9.7-13.0); URINE APPEARANCE CLOUDY; URINE BACTERIA 0 /uL (0-1359); URINE BILIRUBIN NEGATIVE (NEGATIVE); URINE COLOR YELLOW; URINE GLUCOSE (UA) NEGATIVE (NEGATIVE); URINE KETONE NEGATIVE (NEGATIVE); URINE LEUK ESTERASE NEGATIVE (NEGATIVE); URINE NITRITE NEGATIVE (NEGATIVE); URINE PROTEIN 1+ (NEGATIVE); URINE RBC 133 /uL (0-23.9); URINE UROBILINOGEN 0.2 mg/dL (0.2-1.0); URINE WBC 24 /uL (0-25.8)
[2021-09-13 23:00] LABS: ACTIVATED PTT 29.6 SECONDS (25.2-36.5)
[2021-09-13 23:15] LABS: BLOOD UREA NITROGEN 32.5 mg/dL (7-18); CALCIUM 8.9 mg/dL (8.5-10.1)
[2021-09-13 23:16] LABS: MAGNESIUM 2.2 mg/dL (1.8-2.4)
[2021-09-13 23:19] LABS: CREATININE 1.4 mg/dL (0.55-1.3)
[2021-09-13 23:20] LABS: BILIRUBIN,TOTAL 1.6 mg/dL (0.2-1); TOT PROT 6.8 g/dl (6.4-8.2)
[2021-09-14] MEDS ORDERED: SODIUM CHLORIDE 0.9% 500 ML INFUS.BAG IV ONE (00:01)
[2021-09-14] MEDS ORDERED: VANCOMYCIN 1 GRAM (PRE-DOCKED) 1,000 MG/250 ML BAG IVPB ONE (01:00)
[2021-09-14] MEDS ORDERED: PIPERACILLIN/TAZOB 4.5 GM 4.5 GM/100 ML BAG IVPB ONE ×3 (04:29→18:26)
[2021-09-14] MEDS: PIPERACILLIN/TAZOB 4.5 GM 4.5 GM in DEXTROSE 5%-WATER 100 ML IVPB SCH ×3 (05:21→18:39)
[2021-09-14 06:26] LABS: BASO % 0.2 % (0-2.0); EOS % 0.1 % (0-4.5); HEMATOCRIT 32.1 % (35.4-49); HEMOGLOBIN 10.7 GM/dL (11.7-16.9); LYMPH % 8.7 % (8-40); MCH 29.9 pg (25.7-33.7); MCHC 33.5 g/dl (32.0-35.9); MEAN CELL VOLUME 89.3 fl (80-96); MEAN PLT VOLUME 7.9 fl (7.5-11.1); MONO % 8.3 % (3.8-10.2); NEUT % 82.7 % (42.8-82.8); PLATELET COUNT 246 10^3/uL (134-434); RBC 3.59 M/mm3 (4.00-5.60); RDW 14.2 % (11.9-15.9); WHITE BLOOD COUNT 14.1 K/mm3 (4.0-10.0)
[2021-09-14 06:51] LABS: CALCIUM 8.6 mg/dL (8.5-10.1)
[2021-09-14 06:52] LABS: ALBUMIN 2.7 g/dl (3.4-5.0); BLOOD UREA NITROGEN 30.5 mg/dL (7-18)
[2021-09-14 06:55] LABS: CREATININE 1.2 mg/dL (0.55-1.3)
[2021-09-14 06:56] LABS: BILIRUBIN,TOTAL 1.9 mg/dL (0.2-1); TOT PROT 6.4 g/dl (6.4-8.2)
[2021-09-14] MEDS ORDERED: VANCOMYCIN 1,000 MG in DEXTROSE 5%-WATER - 250 ML IVPB SCH (21:15)
[2021-09-14] MEDS ORDERED: VANCOMYCIN/WATER FOR INJ (PEG) 1,000 MG/200 ML BAG IVPB SCH (21:19)
[2021-09-15] MEDS ORDERED: PIPERACILLIN/TAZOBACTAM 3.375 GM VIAL IVPB ONE ×3 (01:11→17:35)
[2021-09-15] MEDS: VANCOMYCIN/WATER FOR INJ (PEG) 1,000 MG/200 ML BAG IVPB SCH (01:19)
[2021-09-15] MEDS: PIPERACILLIN/TAZOB 4.5 GM 4.5 GM in DEXTROSE 5%-WATER 100 ML IVPB SCH (01:20)
[2021-09-15] MEDS ORDERED: VANCOMYCIN/WATER FOR INJ (PEG) 1,000 MG/200 ML BAG IVPB SCH (02:00)
[2021-09-15] MEDS ORDERED: VANCOMYCIN 1,000 MG in DEXTROSE 5%-WATER - 250 ML IVPB SCH (02:00)
[2021-09-15] MEDS: PIPERACILLIN/TAZOB 3.375 GM 3.375 GM in DEXTROSE 5%-WATER - 50 ML IVPB SCH ×3 (03:03→17:36)
[2021-09-15 08:17] LABS: BASO % 0.2 % (0-2.0); EOS % 0.6 % (0-4.5); HEMATOCRIT 33.7 % (35.4-49); HEMOGLOBIN 10.9 GM/dL (11.7-16.9); LYMPH % 10.7 % (8-40); MCH 29.2 pg (25.7-33.7); MCHC 32.5 g/dl (32.0-35.9); MEAN CELL VOLUME 89.7 fl (80-96); MEAN PLT VOLUME 8.3 fl (7.5-11.1); NEUT % 80.5 % (42.8-82.8); PLATELET COUNT 288 10^3/uL (134-434); RBC 3.75 M/mm3 (4.00-5.60); RDW 14.2 % (11.9-15.9); WHITE BLOOD COUNT 12.7 K/mm3 (4.0-10.0)
[2021-09-15 08:35] LABS: ALBUMIN 2.6 g/dl (3.4-5.0); BLOOD UREA NITROGEN 28.9 mg/dL (7-18); CALCIUM 8.9 mg/dL (8.5-10.1)
[2021-09-15 08:38] LABS: CREATININE 1.1 mg/dL (0.55-1.3)
[2021-09-15 08:40] LABS: TOT PROT 6.4 g/dl (6.4-8.2)
[2021-09-15] MEDS ORDERED: DEXTROSE 5%-WATER - 50 ML IVPB ONE ×2 (08:47→17:35)
[2021-09-15] MEDS ORDERED: ALBUTEROL SO4 2.5/IPRATROPIUM 0.5 INH SOL 3 ML VIAL.NEB. NEB PRN (11:51)
[2021-09-16] MEDS ORDERED: PIPERACILLIN/TAZOBACTAM 3.375 GM VIAL IVPB ONE ×3 (00:20→18:05)
[2021-09-16] MEDS ORDERED: DEXTROSE 5%-WATER - 50 ML IVPB ONE ×3 (00:20→18:05)
[2021-09-16] MEDS: VANCOMYCIN/WATER FOR INJ (PEG) 1,000 MG/200 ML BAG IVPB SCH (00:27)
[2021-09-16] MEDS: PIPERACILLIN/TAZOB 3.375 GM 3.375 GM in DEXTROSE 5%-WATER - 50 ML IVPB SCH ×3 (02:06→18:09)
[2021-09-16 07:01] LABS: BASO % 0.2 % (0-2.0); EOS % 1.9 % (0-4.5); HEMATOCRIT 32.5 % (35.4-49); HEMOGLOBIN 10.6 GM/dL (11.7-16.9); LYMPH % 12.8 % (8-40); MCH 29.3 pg (25.7-33.7); MCHC 32.7 g/dl (32.0-35.9); MEAN CELL VOLUME 89.7 fl (80-96); MEAN PLT VOLUME 7.7 fl (7.5-11.1); MONO % 9.1 % (3.8-10.2); PLATELET COUNT 290 10^3/uL (134-434); RBC 3.63 M/mm3 (4.00-5.60); WHITE BLOOD COUNT 8.7 K/mm3 (4.0-10.0)
[2021-09-16 07:31] LABS: ALBUMIN 2.4 g/dl (3.4-5.0); BLOOD UREA NITROGEN 22.6 mg/dL (7-18); CALCIUM 8.4 mg/dL (8.5-10.1)
[2021-09-16 07:33] LABS: CREATININE 0.9 mg/dL (0.55-1.3)
[2021-09-16 07:35] LABS: BILIRUBIN,TOTAL 0.9 mg/dL (0.2-1); TOT PROT 5.8 g/dl (6.4-8.2)
[2021-09-16] MEDS: QUEtiapine FUMARATE 25 MG TABLET PO PRN (21:29)
[2021-09-17] MEDS ORDERED: DEXTROSE 5%-WATER - 50 ML IVPB ONE ×3 (00:33→16:07)
[2021-09-17] MEDS ORDERED: PIPERACILLIN/TAZOBACTAM 3.375 GM VIAL IVPB ONE ×3 (00:33→16:07)
[2021-09-17] MEDS: VANCOMYCIN/WATER FOR INJ (PEG) 1,000 MG/200 ML BAG IVPB SCH (00:46)
[2021-09-17] MEDS: PIPERACILLIN/TAZOB 3.375 GM 3.375 GM in DEXTROSE 5%-WATER - 50 ML IVPB SCH ×3 (02:30→17:08)
[2021-09-17] MEDS: QUEtiapine FUMARATE 25 MG TABLET PO PRN (21:13)
[2021-09-18] MEDS ORDERED: PIPERACILLIN/TAZOBACTAM 3.375 GM VIAL IVPB ONE ×3 (00:07→16:47)
[2021-09-18] MEDS ORDERED: DEXTROSE 5%-WATER - 50 ML IVPB ONE ×2 (00:08→09:11)
[2021-09-18] MEDS: VANCOMYCIN/WATER FOR INJ (PEG) 1,000 MG/200 ML BAG IVPB SCH (00:22)
[2021-09-18] MEDS: PIPERACILLIN/TAZOB 3.375 GM 3.375 GM in DEXTROSE 5%-WATER - 50 ML IVPB SCH ×3 (01:35→17:05)
[2021-09-18] MEDS ORDERED: metoPROLOL SUCCINATE 25 MG TAB.SR.24H (FP) PO ONE (09:10)
[2021-09-18] MEDS ORDERED: metoPROLOL SUCCINATE 25 MG TAB.SR.24H (FP) PO SCH (10:00)
[2021-09-18] MEDS: METOPROLOL SUCCINATE 50 MG, METOPROLOL SUCCINATE 25 MG PO SCH (10:21)
[2021-09-18] MEDS: ASPIRIN 81 MG CHEWABLE TABLETS PO SCH (10:21)
[2021-09-18] MEDS: ESCITALOPRAM OXALATE 10 MG TABLET PO SCH (17:23)
[2021-09-18] MEDS: busPIRone HCL 10 MG TABLET (FP) PO SCH (22:29)
[2021-09-18] MEDS: QUEtiapine FUMARATE 25 MG TABLET PO PRN (22:29)
[2021-09-19] MEDS ORDERED: PIPERACILLIN/TAZOBACTAM 3.375 GM VIAL IVPB ONE ×3 (00:58→16:26)
[2021-09-19] MEDS ORDERED: DEXTROSE 5%-WATER - 50 ML IVPB ONE ×3 (00:58→16:27)
[2021-09-19] MEDS ORDERED: MELATONIN 5 MG TABLETS PO ONE (01:16)
[2021-09-19] MEDS: VANCOMYCIN/WATER FOR INJ (PEG) 1,000 MG/200 ML BAG IVPB SCH (01:31)
[2021-09-19] MEDS: PIPERACILLIN/TAZOB 3.375 GM 3.375 GM in DEXTROSE 5%-WATER - 50 ML IVPB SCH ×3 (01:37→17:03)
[2021-09-19] MEDS: busPIRone HCL 10 MG TABLET (FP) PO SCH ×3 (06:08→22:34)
[2021-09-19 06:59] LABS: BASO % 0.2 % (0-2.0); EOS % 1.1 % (0-4.5); HEMATOCRIT 33.6 % (35.4-49); HEMOGLOBIN 11.2 GM/dL (11.7-16.9); LYMPH % 10.1 % (8-40); MCH 29.5 pg (25.7-33.7); MCHC 33.4 g/dl (32.0-35.9); MEAN CELL VOLUME 88.2 fl (80-96); MEAN PLT VOLUME 7.7 fl (7.5-11.1); MONO % 6.4 % (3.8-10.2); NEUT % 82.2 % (42.8-82.8); PLATELET COUNT 373 10^3/uL (134-434); RBC 3.81 M/mm3 (4.00-5.60); RDW 13.9 % (11.9-15.9); WHITE BLOOD COUNT 13.7 K/mm3 (4.0-10.0)
[2021-09-19 07:20] LABS: ALBUMIN 2.5 g/dl (3.4-5.0); CALCIUM 8.7 mg/dL (8.5-10.1)
[2021-09-19 07:21] LABS: BLOOD UREA NITROGEN 19.9 mg/dL (7-18)
[2021-09-19 07:25] LABS: BILIRUBIN,TOTAL 0.7 mg/dL (0.2-1); TOT PROT 6.2 g/dl (6.4-8.2)
[2021-09-19] MEDS ORDERED: metoPROLOL SUCCINATE 25 MG TAB.SR.24H (FP) PO ONE (08:04)
[2021-09-19] MEDS: METOPROLOL SUCCINATE 50 MG, METOPROLOL SUCCINATE 25 MG PO SCH (09:25)
[2021-09-19] MEDS: ESCITALOPRAM OXALATE 10 MG TABLET PO SCH (09:25)
[2021-09-19] MEDS: ASPIRIN 81 MG CHEWABLE TABLETS PO SCH (09:25)
[2021-09-19] MEDS: HEPARIN NA (PORCINE) 5,000 UNITS/ML 1ML VIAL SQ SCH (22:34)
[2021-09-19] MEDS: QUEtiapine FUMARATE 25 MG TABLET PO PRN (22:34)
[2021-09-20] MEDS: MELATONIN 5 MG TABLETS PO PRN ×2 (00:43→21:35)
[2021-09-20] MEDS ORDERED: PIPERACILLIN/TAZOBACTAM 3.375 GM VIAL IVPB ONE ×3 (00:45→17:39)
[2021-09-20] MEDS ORDERED: DEXTROSE 5%-WATER - 50 ML IVPB ONE ×3 (00:46→17:39)
[2021-09-20] MEDS: VANCOMYCIN/WATER FOR INJ (PEG) 1,000 MG/200 ML BAG IVPB SCH (00:50)
[2021-09-20] MEDS: PIPERACILLIN/TAZOB 3.375 GM 3.375 GM in DEXTROSE 5%-WATER - 50 ML IVPB SCH ×3 (01:04→17:40)
[2021-09-20] MEDS: busPIRone HCL 10 MG TABLET (FP) PO SCH ×3 (06:05→21:35)
[2021-09-20] MEDS ORDERED: metoPROLOL SUCCINATE 25 MG TAB.SR.24H (FP) PO ONE (10:30)
[2021-09-20] MEDS: ASPIRIN 81 MG CHEWABLE TABLETS PO SCH (10:31)
[2021-09-20] MEDS: ESCITALOPRAM OXALATE 10 MG TABLET PO SCH (10:31)
[2021-09-20] MEDS: HEPARIN NA (PORCINE) 5,000 UNITS/ML 1ML VIAL SQ SCH ×2 (10:31→21:35)
[2021-09-20] MEDS: METOPROLOL SUCCINATE 50 MG, METOPROLOL SUCCINATE 25 MG PO SCH (10:31)
[2021-09-20] MEDS ORDERED: ALPRAZolam 0.25 MG TABLET PO ONE (15:00)
[2021-09-20] MEDS: QUEtiapine FUMARATE 25 MG TABLET PO PRN (21:35)
[2021-09-21] MEDS ORDERED: PIPERACILLIN/TAZOBACTAM 3.375 GM VIAL IVPB ONE ×3 (00:44→18:39)
[2021-09-21] MEDS: VANCOMYCIN/WATER FOR INJ (PEG) 1,000 MG/200 ML BAG IVPB SCH (00:48)
[2021-09-21] MEDS: PIPERACILLIN/TAZOB 3.375 GM 3.375 GM in DEXTROSE 5%-WATER - 50 ML IVPB SCH ×3 (03:12→18:47)
[2021-09-21] MEDS: busPIRone HCL 10 MG TABLET (FP) PO SCH ×3 (06:07→21:07)
[2021-09-21 07:50] LABS: BASO % 0.3 % (0-2.0); HEMOGLOBIN 12.2 GM/dL (11.7-16.9); LYMPH % 12.7 % (8-40); MCH 29.6 pg (25.7-33.7); MCHC 32.9 g/dl (32.0-35.9); MEAN CELL VOLUME 89.9 fl (80-96); MEAN PLT VOLUME 7.6 fl (7.5-11.1); MONO % 7.8 % (3.8-10.2); NEUT % 77.2 % (42.8-82.8); PLATELET COUNT 394 10^3/uL (134-434); RBC 4.11 M/mm3 (4.00-5.60); RDW 14.2 % (11.9-15.9); WHITE BLOOD COUNT 10.6 K/mm3 (4.0-10.0)
[2021-09-21 08:08] LABS: CALCIUM 9.3 mg/dL (8.5-10.1)
[2021-09-21 08:09] LABS: BLOOD UREA NITROGEN 19.3 mg/dL (7-18)
[2021-09-21 08:12] LABS: CREATININE 1.1 mg/dL (0.55-1.3)
[2021-09-21] MEDS ORDERED: metoPROLOL SUCCINATE 25 MG TAB.SR.24H (FP) PO ONE (09:58)
[2021-09-21] MEDS ORDERED: DEXTROSE 5%-WATER - 50 ML IVPB ONE ×2 (09:59→18:39)
[2021-09-21] MEDS: ESCITALOPRAM OXALATE 10 MG TABLET PO SCH (10:28)
[2021-09-21] MEDS: METOPROLOL SUCCINATE 50 MG, METOPROLOL SUCCINATE 25 MG PO SCH (10:28)
[2021-09-21] MEDS: ASPIRIN 81 MG CHEWABLE TABLETS PO SCH (10:29)
[2021-09-21] MEDS: HEPARIN NA (PORCINE) 5,000 UNITS/ML 1ML VIAL SQ SCH ×2 (10:29→21:07)
[2021-09-21] MEDS: QUEtiapine FUMARATE 25 MG TABLET PO PRN (16:37)
[2021-09-21] MEDS: MELATONIN 5 MG TABLETS PO PRN (21:07)
[2021-09-22] MEDS ORDERED: PIPERACILLIN/TAZOBACTAM 3.375 GM VIAL IVPB ONE ×2 (04:57→08:44)
[2021-09-22] MEDS ORDERED: DEXTROSE 5%-WATER - 50 ML IVPB ONE ×2 (04:57→08:44)
[2021-09-22] MEDS: PIPERACILLIN/TAZOB 3.375 GM 3.375 GM in DEXTROSE 5%-WATER - 50 ML IVPB SCH ×3 (04:58→17:36)
[2021-09-22] MEDS: busPIRone HCL 10 MG TABLET (FP) PO SCH ×2 (05:22→13:35)
[2021-09-22] MEDS ORDERED: metoPROLOL SUCCINATE 25 MG TAB.SR.24H (FP) PO ONE (08:43)
[2021-09-22] MEDS: METOPROLOL SUCCINATE 50 MG, METOPROLOL SUCCINATE 25 MG PO SCH (09:03)
[2021-09-22] MEDS: ASPIRIN 81 MG CHEWABLE TABLETS PO SCH (09:04)
[2021-09-22] MEDS: ESCITALOPRAM OXALATE 10 MG TABLET PO SCH (09:04)
[2021-09-22] MEDS: HEPARIN NA (PORCINE) 5,000 UNITS/ML 1ML VIAL SQ SCH (09:04)
[2021-09-22 19:00] VITALS: BP 114/60; PULSE 72; TEMP 98
== END 2021-09-22 20:48 | DRG 871 ==
LOC: JER 21:36 → JERBED 22:09 → J4W 09-15 00:55
PROVIDERS: ADMIT Internal Medicine; ATTEND Family Medicine
DX: A41.89 Other specified sepsis (principal); J96.01 Acute respiratory failure with hypoxia; G93.41 Metabolic encephalopathy; J18.9 Pneumonia, unspecified organism; N17.9 Acute kidney failure, unspecified; J44.1 Chronic obstructive pulmonary disease with (acute) exacerbation; M62.82 Rhabdomyolysis; J44.0 Chronic obstructive pulmonary disease with (acute) lower respiratory infection; L03.115 Cellulitis of right lower limb; I50.32 Chronic diastolic (congestive) heart failure; I48.92 Unspecified atrial flutter; I82.811 Embolism and thrombosis of superficial veins of right lower extremity; J44.9 Chronic obstructive pulmonary disease, unspecified; I48.91 Unspecified atrial fibrillation; F03.90 Unspecified dementia, unspecified severity, without behavioral disturbance, psychotic disturbance, mood disturbance, and anxiety; E78.5 Hyperlipidemia, unspecified; D72.829 Elevated white blood cell count, unspecified; F41.9 Anxiety disorder, unspecified; I11.0 Hypertensive heart disease with heart failure; R50.9 Fever, unspecified; R00.0 Tachycardia, unspecified; N40.0 Benign prostatic hyperplasia without lower urinary tract symptoms; K59.00 Constipation, unspecified; Z95.2 Presence of prosthetic heart valve
CPT/HCPCS: 0241U-QW; 36415; 70450-TC; 71045-TC-FY; 80048; 80053; 81003; 82550; 82553; 82803; 82962; 83605; 83735; 84484; 85025; 85610; 85730; 86850; 86900; 86901; 87040; 87086; 87899; 93005; 93010; 93971-TC; 97116-GP; 97162-GP; 99285-25; C9803-CS; G0480; J1644; U0003; U0005

== ENCOUNTER 2021-10-03 10:43 | Inpatient (IN) | payer OTHER, BC ==
[2021-10-03 11:50] LABS: BASO % 0.1 % (0-2.0); HEMATOCRIT 37.7 % (35.4-49); HEMOGLOBIN 12.5 GM/dL (11.7-16.9); LYMPH % 5.4 % (8-40); MCH 29.3 pg (25.7-33.7); MCHC 33.1 g/dl (32.0-35.9); MEAN CELL VOLUME 88.4 fl (80-96); MEAN PLT VOLUME 8.4 fl (7.5-11.1); MONO % 5.8 % (3.8-10.2); NEUT % 88.7 % (42.8-82.8); PLATELET COUNT 392 10^3/uL (134-434); RBC 4.27 M/mm3 (4.00-5.60); RDW 14.3 % (11.9-15.9)
[2021-10-03 11:57] LABS: INR 1.18 (0.83-1.09); PROTHROMBIN TIME (PATIENT) 13.6 SEC (9.7-13.0)
[2021-10-03 12:00] LABS: ACTIVATED PTT 28.9 SECONDS (25.2-36.5)
[2021-10-03 12:04] LABS: CALCIUM 9.5 mg/dL (8.5-10.1)
[2021-10-03 12:05] LABS: BLOOD UREA NITROGEN 32.9 mg/dL (7-18)
[2021-10-03 12:08] LABS: CREATININE 1.5 mg/dL (0.55-1.3)
[2021-10-03 12:09] LABS: BILIRUBIN,TOTAL 1.2 mg/dL (0.2-1)
[2021-10-03 12:10] LABS: TOT PROT 7.1 g/dl (6.4-8.2)
[2021-10-03 12:14] VITALS: BMI 18.4
[2021-10-03] MEDS ORDERED: ACETAMINOPHEN 1000 MG/100 ML BAG IVPB ONE ×2 (12:16→17:12)
[2021-10-03 12:17] LABS: LACTIC ACID 3.8 mmol/L (0.4-2.0)
[2021-10-03] MEDS ORDERED: VANCOMYCIN 1 GM in D5W (PRE-DOCKED) 1,000 MG/250 ML IVPB ONE (12:19)
[2021-10-03] MEDS ORDERED: PIPERACILLIN/TAZOB 4.5 GM 4.5 GM in DEXTROSE 5%-WATER 100 ML IVPB ONE (12:19)
[2021-10-03] MEDS ORDERED: LACTATED RINGERS SOLUTION 1000 ML INFUS.BAG IV ONE (12:22)
[2021-10-03] MEDS ORDERED: ACETAMINOPHEN INJECTION 100 ML IVPB ONE ×2 (12:38→17:14)
[2021-10-03] MEDS ORDERED: PIPERACILLIN/TAZOB 4.5 GM 4.5 GM/100 ML BAG IVPB ONE (12:39)
[2021-10-03] MEDS ORDERED: VANCOMYCIN 1 GRAM (PRE-DOCKED) 1,000 MG/250 ML BAG IVPB ONE (12:39)
[2021-10-03 13:34] LABS: EPI CELLS 1 /uL (0-25.1); HYALINE CASTS 2 /uL (0-3.1); URINE APPEARANCE CLEAR; URINE BACTERIA >9,000 /uL (0-1359); URINE BILIRUBIN NEGATIVE (NEGATIVE); URINE COLOR YELLOW; URINE GLUCOSE (UA) NEGATIVE (NEGATIVE); URINE KETONE NEGATIVE (NEGATIVE); URINE LEUK ESTERASE 1+ (NEGATIVE); URINE NITRITE NEGATIVE (NEGATIVE); URINE PROTEIN 1+ (NEGATIVE); URINE RBC 30 /uL (0-23.9); URINE UROBILINOGEN 0.2 mg/dL (0.2-1.0); URINE WBC 120 /uL (0-25.8)
[2021-10-03] MEDS ORDERED: HALOPERIDOL LACTATE 5 MG/ML IV ONE (14:52)
[2021-10-03] MEDS ORDERED: HALOPERIDOL LACTATE 5 MG/ML ONE (15:16)
[2021-10-03 16:32] LABS: ARTERIAL BLD GAS O2 SATURATION 99.6 % (95-98); ARTERIAL BLOOD GAS BASE EXCESS 1.8 mmol/L (-2-2); ARTERIAL BLOOD GAS PO2 255.2 mmHg (80-100); ARTERIAL BLOOD GAS pH 7.477 (7.350-7.450)
[2021-10-03] MEDS ORDERED: ALBUTEROL SO4 2.5/IPRATROPIUM 0.5 INH SOL 3 ML VIAL.NEB. NEB PRN (20:21)
[2021-10-03] MEDS ORDERED: ACETAMINOPHEN 1000 MG/100 ML BAG IVPB PRN (20:27)
[2021-10-04] MEDS ORDERED: FUROSEMIDE 40 MG/4 ML INJECTABLE VIAL ONE ×2 (01:52→08:51)
[2021-10-04] MEDS ORDERED: PIPERACILLIN/TAZOB 3.375 GM 3.375 GM/50 ML BAG IVPB ONE ×4 (01:52→20:48)
[2021-10-04] MEDS ORDERED: HEPARIN NA (PORCINE) 5,000 UNITS/ML 1ML VIAL ONE ×3 (01:52→20:48)
[2021-10-04] MEDS: PIPERACILLIN/TAZOB 3.375 GM 3.375 GM in DEXTROSE 5%-WATER - 50 ML IVPB SCH ×5 (02:11→18:04)
[2021-10-04] MEDS: HEPARIN NA (PORCINE) 5,000 UNITS/ML 1ML VIAL SQ SCH ×3 (02:11→21:18)
[2021-10-04] MEDS: FUROSEMIDE 40 MG/4 ML INJECTABLE VIAL IVPUSH SCH ×2 (02:11→09:09)
[2021-10-04] MEDS ORDERED: HALOPERIDOL LACTATE 5 MG/ML IM ONE (04:00)
[2021-10-04] MEDS ORDERED: METOPROLOL TARTRATE 5 MG/5 ML VIAL IVPUSH ONE (04:00)
[2021-10-04] MEDS ORDERED: HALOPERIDOL LACTATE 5 MG/ML ONE (04:02)
[2021-10-04] MEDS ORDERED: METOPROLOL TARTRATE 5 MG/5 ML VIAL ONE ×2 (04:02→12:44)
[2021-10-04] MEDS ORDERED: ACETAMINOPHEN INJECTION 100 ML IVPB ONE (05:28)
[2021-10-04 07:40] LABS: HEMATOCRIT 36.2 % (35.4-49); MCH 29.2 pg (25.7-33.7); MCHC 33.1 g/dl (32.0-35.9); MEAN CELL VOLUME 88.1 fl (80-96); PLATELET COUNT 301 10^3/uL (134-434); RBC 4.11 M/mm3 (4.00-5.60); RDW 14.6 % (11.9-15.9)
[2021-10-04 08:06] LABS: ALBUMIN 2.8 g/dl (3.4-5.0)
[2021-10-04 08:08] LABS: CREATININE 1.3 mg/dL (0.55-1.3)
[2021-10-04 08:09] LABS: BILIRUBIN,TOTAL 2.1 mg/dL (0.2-1)
[2021-10-04 08:10] LABS: TOT PROT 6.8 g/dl (6.4-8.2)
[2021-10-04 08:38] LABS: ANISOCYTOSIS 0; HELMET CELLS 0; HOWELL-JOLLY BODIES 0; MACROCYTOSIS 0; OVALOCYTE 0; ROULEAU 0; SICKELED CELLS 0; TARGET CELLS 0; TEAR DROP CELLS 0; TOXIC GRANULATION 0
[2021-10-04] MEDS: METOPROLOL TARTRATE 5 MG/5 ML VIAL IVPUSH PRN (12:50)
[2021-10-05] MEDS ORDERED: METOPROLOL TARTRATE 5 MG/5 ML VIAL ONE ×2 (00:54→09:04)
[2021-10-05] MEDS: METOPROLOL TARTRATE 5 MG/5 ML VIAL IVPUSH PRN ×2 (00:56→09:24)
[2021-10-05] MEDS: PIPERACILLIN/TAZOB 3.375 GM 3.375 GM in DEXTROSE 5%-WATER - 50 ML IVPB SCH ×3 (02:52→17:26)
[2021-10-05] MEDS ORDERED: FUROSEMIDE 40 MG/4 ML INJECTABLE VIAL ONE ×2 (09:02→09:04)
[2021-10-05] MEDS ORDERED: HEPARIN NA (PORCINE) 5,000 UNITS/ML 1ML VIAL ONE ×3 (09:02→23:29)
[2021-10-05] MEDS ORDERED: PIPERACILLIN/TAZOB 3.375 GM 3.375 GM/50 ML BAG IVPB ONE ×2 (09:04→17:27)
[2021-10-05] MEDS: HEPARIN NA (PORCINE) 5,000 UNITS/ML 1ML VIAL SQ SCH ×2 (09:23→23:33)
[2021-10-05] MEDS: FUROSEMIDE 40 MG/4 ML INJECTABLE VIAL IVPUSH SCH (09:23)
[2021-10-05] MEDS ORDERED: ASPIRIN 81 MG CHEWABLE TABLETS ONE (09:28)
[2021-10-05] MEDS ORDERED: metoPROLOL SUCCINATE 25 MG TAB.SR.24H (FP) PO ONE (09:28)
[2021-10-05] MEDS: metoPROLOL SUCCINATE 25 MG TAB.SR.24H (FP) PO SCH (09:33)
[2021-10-05] MEDS: ESCITALOPRAM OXALATE 20 MG TABLET PO SCH (09:33)
[2021-10-05] MEDS: ASPIRIN 81 MG CHEWABLE TABLETS PO SCH (09:34)
[2021-10-05] MEDS ORDERED: dilTIAZem HCL 50 MG/10 ML - 10 ML VIAL IVPUSH ONE ×2 (10:17→10:48)
[2021-10-05] MEDS ORDERED: dilTIAZem HCL 125 MG/25 ML - 25 ML VIAL ONE ×2 (10:27→11:13)
[2021-10-05] MEDS ORDERED: HALOPERIDOL LACTATE 5 MG/ML IM ONE (10:48)
[2021-10-05] MEDS ORDERED: HALOPERIDOL LACTATE 5 MG/ML ONE (10:52)
[2021-10-05 11:49] LABS: HEMATOCRIT 39.2 % (35.4-49); MCH 29.2 pg (25.7-33.7); MCHC 33.1 g/dl (32.0-35.9); MEAN CELL VOLUME 88.4 fl (80-96); MEAN PLT VOLUME 8.5 fl (7.5-11.1); PLATELET COUNT 340 10^3/uL (134-434); RBC 4.44 M/mm3 (4.00-5.60); RDW 14.2 % (11.9-15.9); WHITE BLOOD COUNT 18.4 K/mm3 (4.0-10.0)
[2021-10-05 11:58] LABS: ALBUMIN 2.8 g/dl (3.4-5.0); CALCIUM 9.8 mg/dL (8.5-10.1)
[2021-10-05 12:01] LABS: CREATININE 1.2 mg/dL (0.55-1.3)
[2021-10-05 12:03] LABS: BILIRUBIN,TOTAL 1.1 mg/dL (0.2-1); TOT PROT 7.4 g/dl (6.4-8.2)
[2021-10-05 13:00] LABS: ANISOCYTOSIS 0; MACROCYTOSIS 0; OVALOCYTE 1+; TEAR DROP CELLS 1+
[2021-10-05] MEDS: busPIRone HCL 10 MG TABLET (FP) PO SCH ×2 (16:21→23:29)
[2021-10-06] MEDS ORDERED: PIPERACILLIN/TAZOB 3.375 GM 3.375 GM/50 ML BAG IVPB ONE (01:07)
[2021-10-06] MEDS: PIPERACILLIN/TAZOB 3.375 GM 3.375 GM in DEXTROSE 5%-WATER - 50 ML IVPB SCH (01:50)
[2021-10-06] MEDS: busPIRone HCL 10 MG TABLET (FP) PO SCH ×3 (05:00→21:13)
[2021-10-06 07:28] LABS: HEMOGLOBIN 13.4 GM/dL (11.7-16.9); MCH 28.8 pg (25.7-33.7); MCHC 32.6 g/dl (32.0-35.9); MEAN CELL VOLUME 88.2 fl (80-96); MEAN PLT VOLUME 8.5 fl (7.5-11.1); PLATELET COUNT 341 10^3/uL (134-434); RBC 4.64 M/mm3 (4.00-5.60); RDW 14.3 % (11.9-15.9); WHITE BLOOD COUNT 20.9 K/mm3 (4.0-10.0)
[2021-10-06 07:38] LABS: CALCIUM 9.7 mg/dL (8.5-10.1)
[2021-10-06 07:39] LABS: ALBUMIN 2.9 g/dl (3.4-5.0)
[2021-10-06 07:42] LABS: CREATININE 1.3 mg/dL (0.55-1.3)
[2021-10-06 07:43] LABS: BILIRUBIN,TOTAL 1.2 mg/dL (0.2-1); TOT PROT 7.4 g/dl (6.4-8.2)
[2021-10-06] MEDS ORDERED: DEXTROSE 5%-WATER - 1,000 ML with POTASSIUM CHLORIDE 20 MEQ IV SCH (08:45)
[2021-10-06] MEDS ORDERED: KCL 10 MEQ IVPB 20 MEQ/200 ML INFUS.BAG IVPB ONE (09:22)
[2021-10-06] MEDS: KCL 10 MEQ IVPB 10 MEQ/100 ML INFUS.BAG IVPB SCH ×2 (09:34→11:16)
[2021-10-06 09:53] LABS: ANISOCYTOSIS 0; HELMET CELLS 0; HOWELL-JOLLY BODIES 0; MACROCYTOSIS 0; OVALOCYTE 0; ROULEAU 0; SICKELED CELLS 0; TARGET CELLS 0; TEAR DROP CELLS 0; TOXIC GRANULATION 0
[2021-10-06] MEDS: DEXTROSE 5%-WATER - 1,000 ML with POTASSIUM CHLORIDE 20 MEQ IV SCH (10:05)
[2021-10-06 10:32] LABS: MAGNESIUM 2.8 mg/dL (1.8-2.4)
[2021-10-06] MEDS ORDERED: ERTAPENEM SODIUM 1 GM VIAL ONE (11:10)
[2021-10-06] MEDS ORDERED: HEPARIN NA (PORCINE) 5,000 UNITS/ML 1ML VIAL ONE (11:18)
[2021-10-06] MEDS: HEPARIN NA (PORCINE) 5,000 UNITS/ML 1ML VIAL SQ SCH ×2 (11:26→21:16)
[2021-10-06] MEDS: ESCITALOPRAM OXALATE 20 MG TABLET PO SCH (11:27)
[2021-10-06] MEDS: metoPROLOL SUCCINATE 25 MG TAB.SR.24H (FP) PO SCH (11:27)
[2021-10-06] MEDS: ERTAPENEM SODIUM 1 GM in SODIUM CHLORIDE 50 ML IVPB SCH (11:27)
[2021-10-06] MEDS: ASPIRIN 81 MG CHEWABLE TABLETS PO SCH (11:27)
[2021-10-07] MEDS: DEXTROSE 5%-WATER - 1,000 ML with POTASSIUM CHLORIDE 20 MEQ IV SCH (00:48)
[2021-10-07] MEDS: busPIRone HCL 10 MG TABLET (FP) PO SCH ×3 (05:49→22:00)
[2021-10-07 07:31] LABS: HEMATOCRIT 39.7 % (35.4-49); HEMOGLOBIN 12.8 GM/dL (11.7-16.9); MCH 28.6 pg (25.7-33.7); MCHC 32.1 g/dl (32.0-35.9); MEAN CELL VOLUME 88.9 fl (80-96); MEAN PLT VOLUME 8.7 fl (7.5-11.1); PLATELET COUNT 315 10^3/uL (134-434); RBC 4.46 M/mm3 (4.00-5.60); RDW 14.4 % (11.9-15.9); WHITE BLOOD COUNT 16.2 K/mm3 (4.0-10.0)
[2021-10-07 07:48] LABS: CALCIUM 9.3 mg/dL (8.5-10.1)
[2021-10-07 07:49] LABS: ALBUMIN 2.6 g/dl (3.4-5.0); BLOOD UREA NITROGEN 41.6 mg/dL (7-18)
[2021-10-07 07:52] LABS: CREATININE 1.1 mg/dL (0.55-1.3)
[2021-10-07 07:53] LABS: TOT PROT 6.8 g/dl (6.4-8.2)
[2021-10-07 07:54] LABS: BILIRUBIN,TOTAL 0.7 mg/dL (0.2-1)
[2021-10-07 09:06] LABS: ANISOCYTOSIS 2+; MACROCYTOSIS 0; TARGET CELLS 1+; TEAR DROP CELLS 1+
[2021-10-07] MEDS: ERTAPENEM SODIUM 1 GM in SODIUM CHLORIDE 50 ML IVPB SCH (09:33)
[2021-10-07] MEDS: HEPARIN NA (PORCINE) 5,000 UNITS/ML 1ML VIAL SQ SCH ×2 (09:33→22:01)
[2021-10-07] MEDS: metoPROLOL SUCCINATE 25 MG TAB.SR.24H (FP) PO SCH (09:34)
[2021-10-07] MEDS: ASPIRIN 81 MG CHEWABLE TABLETS PO SCH (09:34)
[2021-10-07] MEDS: ESCITALOPRAM OXALATE 20 MG TABLET PO SCH (09:34)
[2021-10-07] MEDS: POTASSIUM CHLORIDE 20 MEQ in DEXTROSE 5%-WATER - 1,000 ML IVPB SCH ×2 (10:03→22:01)
[2021-10-08] MEDS: POTASSIUM CHLORIDE 20 MEQ in DEXTROSE 5%-WATER - 1,000 ML IVPB SCH ×3 (02:30→16:01)
[2021-10-08] MEDS: busPIRone HCL 10 MG TABLET (FP) PO SCH ×3 (06:09→21:46)
[2021-10-08 07:28] LABS: CALCIUM 8.5 mg/dL (8.5-10.1)
[2021-10-08 07:29] LABS: MAGNESIUM 2.1 mg/dL (1.8-2.4)
[2021-10-08 07:31] LABS: BLOOD UREA NITROGEN 29.4 mg/dL (7-18)
[2021-10-08 07:32] LABS: ALBUMIN 2.3 g/dl (3.4-5.0); CREATININE 0.8 mg/dL (0.55-1.3)
[2021-10-08 07:33] LABS: TOT PROT 5.9 g/dl (6.4-8.2)
[2021-10-08 07:34] LABS: PHOSPHOROUS 2.2 mg/dL (2.5-4.9)
[2021-10-08 07:35] LABS: BILIRUBIN,TOTAL 0.8 mg/dL (0.2-1)
[2021-10-08] MEDS: ESCITALOPRAM OXALATE 20 MG TABLET PO SCH (09:54)
[2021-10-08] MEDS: ASPIRIN 81 MG CHEWABLE TABLETS PO SCH (09:54)
[2021-10-08] MEDS: HEPARIN NA (PORCINE) 5,000 UNITS/ML 1ML VIAL SQ SCH ×2 (09:54→21:46)
[2021-10-08] MEDS: ERTAPENEM SODIUM 1 GM in SODIUM CHLORIDE 50 ML IVPB SCH (09:58)
[2021-10-08] MEDS: METOPROLOL TARTRATE 25 MG TABLET (FP) PO SCH ×2 (09:58→21:46)
[2021-10-08] MEDS ORDERED: POTASSIUM PHOSPHATE 15 MM in DEXTROSE 5%-WATER - 250 ML IVPB ONE (12:04)
[2021-10-09] MEDS: POTASSIUM CHLORIDE 20 MEQ in DEXTROSE 5%-WATER - 1,000 ML IVPB SCH (03:20)
[2021-10-09] MEDS: busPIRone HCL 10 MG TABLET (FP) PO SCH ×3 (05:50→21:26)
[2021-10-09] MEDS: METOPROLOL TARTRATE 25 MG TABLET (FP) PO SCH ×2 (10:08→21:26)
[2021-10-09] MEDS: ESCITALOPRAM OXALATE 20 MG TABLET PO SCH (10:08)
[2021-10-09] MEDS: ASPIRIN 81 MG CHEWABLE TABLETS PO SCH (10:08)
[2021-10-09] MEDS: ERTAPENEM SODIUM 1 GM in SODIUM CHLORIDE 50 ML IVPB SCH (10:08)
[2021-10-09] MEDS: HEPARIN NA (PORCINE) 5,000 UNITS/ML 1ML VIAL SQ SCH ×2 (10:08→21:26)
[2021-10-09] MEDS ORDERED: ACETAMINOPHEN 1000 MG/100 ML BAG IVPB ONE (21:31)
[2021-10-10] MEDS: busPIRone HCL 10 MG TABLET (FP) PO SCH ×3 (05:58→22:09)
[2021-10-10 08:07] LABS: ALBUMIN 2.1 g/dl (3.4-5.0); BLOOD UREA NITROGEN 24.8 mg/dL (7-18); CALCIUM 8.9 mg/dL (8.5-10.1)
[2021-10-10 08:10] LABS: PHOSPHOROUS 3.8 mg/dL (2.5-4.9)
[2021-10-10 08:12] LABS: BILIRUBIN,TOTAL 1.1 mg/dL (0.2-1); TOT PROT 5.7 g/dl (6.4-8.2)
[2021-10-10] MEDS: HEPARIN NA (PORCINE) 5,000 UNITS/ML 1ML VIAL SQ SCH (09:33)
[2021-10-10] MEDS: ESCITALOPRAM OXALATE 20 MG TABLET PO SCH (09:33)
[2021-10-10] MEDS: ASPIRIN 81 MG CHEWABLE TABLETS PO SCH (09:33)
[2021-10-10] MEDS: METOPROLOL TARTRATE 25 MG TABLET (FP) PO SCH ×2 (09:34→22:09)
[2021-10-10] MEDS: ERTAPENEM SODIUM 1 GM in SODIUM CHLORIDE 50 ML IVPB SCH (09:35)
[2021-10-11] MEDS: busPIRone HCL 10 MG TABLET (FP) PO SCH ×3 (06:41→22:25)
[2021-10-11 08:10] LABS: HEMATOCRIT 37.7 % (35.4-49); HEMOGLOBIN 12.3 GM/dL (11.7-16.9); MCH 28.7 pg (25.7-33.7); MCHC 32.6 g/dl (32.0-35.9); MEAN CELL VOLUME 88.1 fl (80-96); MEAN PLT VOLUME 8.9 fl (7.5-11.1); PLATELET COUNT 293 10^3/uL (134-434); RBC 4.28 M/mm3 (4.00-5.60); RDW 14.4 % (11.9-15.9); WHITE BLOOD COUNT 17.1 K/mm3 (4.0-10.0)
[2021-10-11 08:24] LABS: ALBUMIN 2.2 g/dl (3.4-5.0); CALCIUM 8.5 mg/dL (8.5-10.1)
[2021-10-11 08:27] LABS: CREATININE 0.9 mg/dL (0.55-1.3)
[2021-10-11 08:29] LABS: BILIRUBIN,TOTAL 0.9 mg/dL (0.2-1)
[2021-10-11 09:43] LABS: ANISOCYTOSIS 1+; MACROCYTOSIS 0
[2021-10-11] MEDS: METOPROLOL TARTRATE 25 MG TABLET (FP) PO SCH ×2 (10:59→22:25)
[2021-10-11] MEDS: ESCITALOPRAM OXALATE 20 MG TABLET PO SCH (10:59)
[2021-10-11] MEDS: ASPIRIN 81 MG CHEWABLE TABLETS PO SCH (10:59)
[2021-10-11] MEDS: ERTAPENEM SODIUM 1 GM in SODIUM CHLORIDE 50 ML IVPB SCH (10:59)
[2021-10-12] MEDS: busPIRone HCL 10 MG TABLET (FP) PO SCH ×3 (06:29→22:02)
[2021-10-12] MEDS: METOPROLOL TARTRATE 25 MG TABLET (FP) PO SCH ×2 (10:25→22:01)
[2021-10-12] MEDS: ASPIRIN 81 MG CHEWABLE TABLETS PO SCH (10:25)
[2021-10-12] MEDS: ESCITALOPRAM OXALATE 20 MG TABLET PO SCH (10:25)
[2021-10-12] MEDS: ERTAPENEM SODIUM 1 GM in SODIUM CHLORIDE 50 ML IVPB SCH (10:25)
[2021-10-13] MEDS: busPIRone HCL 10 MG TABLET (FP) PO SCH ×3 (06:19→21:23)
[2021-10-13 08:23] LABS: CALCIUM 8.9 mg/dL (8.5-10.1)
[2021-10-13 08:24] LABS: ALBUMIN 2.3 g/dl (3.4-5.0); BLOOD UREA NITROGEN 23.3 mg/dL (7-18)
[2021-10-13 08:27] LABS: CREATININE 0.8 mg/dL (0.55-1.3)
[2021-10-13 08:28] LABS: TOT PROT 6.2 g/dl (6.4-8.2)
[2021-10-13 08:29] LABS: BILIRUBIN,TOTAL 0.7 mg/dL (0.2-1)
[2021-10-13] MEDS: ASPIRIN 81 MG CHEWABLE TABLETS PO SCH (09:41)
[2021-10-13] MEDS: ESCITALOPRAM OXALATE 20 MG TABLET PO SCH (09:41)
[2021-10-13] MEDS: METOPROLOL TARTRATE 25 MG TABLET (FP) PO SCH ×2 (09:41→21:23)
[2021-10-14] MEDS: busPIRone HCL 10 MG TABLET (FP) PO SCH ×3 (05:46→22:13)
[2021-10-14 08:16] LABS: BASO % 0.3 % (0-2.0); EOS % 0.9 % (0-4.5); HEMATOCRIT 37.3 % (35.4-49); HEMOGLOBIN 12.1 GM/dL (11.7-16.9); LYMPH % 8.5 % (8-40); MCH 28.5 pg (25.7-33.7); MCHC 32.4 g/dl (32.0-35.9); MEAN PLT VOLUME 8.9 fl (7.5-11.1); MONO % 9.9 % (3.8-10.2); NEUT % 80.4 % (42.8-82.8); PLATELET COUNT 344 10^3/uL (134-434); RBC 4.24 M/mm3 (4.00-5.60); RDW 14.6 % (11.9-15.9); WHITE BLOOD COUNT 16.2 K/mm3 (4.0-10.0)
[2021-10-14] MEDS: ESCITALOPRAM OXALATE 20 MG TABLET PO SCH (09:32)
[2021-10-14] MEDS: ASPIRIN 81 MG CHEWABLE TABLETS PO SCH (09:32)
[2021-10-14] MEDS: METOPROLOL TARTRATE 25 MG TABLET (FP) PO SCH ×2 (09:32→22:13)
[2021-10-15] MEDS: busPIRone HCL 10 MG TABLET (FP) PO SCH ×3 (05:56→21:17)
[2021-10-15] MEDS: METOPROLOL TARTRATE 25 MG TABLET (FP) PO SCH ×2 (09:10→21:17)
[2021-10-15] MEDS: ESCITALOPRAM OXALATE 20 MG TABLET PO SCH (09:10)
[2021-10-15] MEDS: ASPIRIN 81 MG CHEWABLE TABLETS PO SCH (09:10)
[2021-10-16] MEDS: busPIRone HCL 10 MG TABLET (FP) PO SCH ×3 (05:51→21:47)
[2021-10-16] MEDS ORDERED: ESCITALOPRAM OXALATE 10 MG TABLET ONE (09:44)
[2021-10-16] MEDS: ASPIRIN 81 MG CHEWABLE TABLETS PO SCH (09:46)
[2021-10-16] MEDS: METOPROLOL TARTRATE 25 MG TABLET (FP) PO SCH ×2 (09:46→21:47)
[2021-10-16] MEDS: ESCITALOPRAM OXALATE 20 MG TABLET PO SCH (09:47)
[2021-10-16 11:15] LABS: ALBUMIN 2.3 g/dl (3.4-5.0); BLOOD UREA NITROGEN 23.2 mg/dL (7-18); CALCIUM 8.9 mg/dL (8.5-10.1)
[2021-10-16 11:17] LABS: CREATININE 0.8 mg/dL (0.55-1.3)
[2021-10-16 11:19] LABS: TOT PROT 6.5 g/dl (6.4-8.2)
[2021-10-16 11:20] LABS: BILIRUBIN,TOTAL 0.6 mg/dL (0.2-1)
[2021-10-17] MEDS: busPIRone HCL 10 MG TABLET (FP) PO SCH ×3 (05:50→21:33)
[2021-10-17] MEDS ORDERED: ESCITALOPRAM OXALATE 10 MG TABLET ONE (08:43)
[2021-10-17] MEDS: ASPIRIN 81 MG CHEWABLE TABLETS PO SCH (11:36)
[2021-10-17] MEDS: METOPROLOL TARTRATE 25 MG TABLET (FP) PO SCH ×2 (11:36→21:34)
[2021-10-17] MEDS: ESCITALOPRAM OXALATE 20 MG TABLET PO SCH (11:36)
[2021-10-18] MEDS: busPIRone HCL 10 MG TABLET (FP) PO SCH ×3 (05:52→21:58)
[2021-10-18] MEDS ORDERED: ESCITALOPRAM OXALATE 10 MG TABLET ONE (09:17)
[2021-10-18] MEDS: ASPIRIN 81 MG CHEWABLE TABLETS PO SCH (09:32)
[2021-10-18] MEDS: METOPROLOL TARTRATE 25 MG TABLET (FP) PO SCH ×2 (09:32→21:58)
[2021-10-18] MEDS: ESCITALOPRAM OXALATE 20 MG TABLET PO SCH (09:32)
[2021-10-18 09:45] LABS: HEMATOCRIT 35.5 % (35.4-49); HEMOGLOBIN 11.7 GM/dL (11.7-16.9); MCH 28.7 pg (25.7-33.7); MCHC 32.9 g/dl (32.0-35.9); MEAN CELL VOLUME 87.2 fl (80-96); MEAN PLT VOLUME 9.6 fl (7.5-11.1); PLATELET COUNT 451 10^3/uL (134-434); RBC 4.07 M/mm3 (4.00-5.60); RDW 14.4 % (11.9-15.9); WHITE BLOOD COUNT 15.6 K/mm3 (4.0-10.0)
[2021-10-18 10:11] LABS: ALBUMIN 2.5 g/dl (3.4-5.0); CALCIUM 9.2 mg/dL (8.5-10.1)
[2021-10-18 10:12] LABS: MAGNESIUM 2.2 mg/dL (1.8-2.4)
[2021-10-18 10:14] LABS: CREATININE 0.8 mg/dL (0.55-1.3)
[2021-10-18 10:15] LABS: BILIRUBIN,TOTAL 0.7 mg/dL (0.2-1)
[2021-10-19] MEDS: busPIRone HCL 10 MG TABLET (FP) PO SCH ×3 (05:43→22:17)
[2021-10-19] MEDS ORDERED: ESCITALOPRAM OXALATE 10 MG TABLET ONE (09:43)
[2021-10-19] MEDS: ASPIRIN 81 MG CHEWABLE TABLETS PO SCH (09:54)
[2021-10-19] MEDS: METOPROLOL TARTRATE 25 MG TABLET (FP) PO SCH ×2 (09:55→22:17)
[2021-10-19] MEDS: AMINO ACIDS/PROTEIN HYDROLYS 30 ML LIQUID.PKT PO SCH (09:55)
[2021-10-19] MEDS: ESCITALOPRAM OXALATE 20 MG TABLET PO SCH (09:55)
[2021-10-19] MEDS: MULTIVIT-MINERALS ORAL LIQUID PO SCH (09:56)
[2021-10-20] MEDS: busPIRone HCL 10 MG TABLET (FP) PO SCH ×3 (06:13→21:26)
[2021-10-20] MEDS ORDERED: ESCITALOPRAM OXALATE 10 MG TABLET ONE (10:37)
[2021-10-20] MEDS: ASPIRIN 81 MG CHEWABLE TABLETS PO SCH (10:39)
[2021-10-20] MEDS: ESCITALOPRAM OXALATE 20 MG TABLET PO SCH (10:40)
[2021-10-20] MEDS: METOPROLOL TARTRATE 25 MG TABLET (FP) PO SCH ×2 (10:41→21:27)
[2021-10-20] MEDS: AMINO ACIDS/PROTEIN HYDROLYS 30 ML LIQUID.PKT PO SCH (10:41)
[2021-10-20] MEDS: MULTIVIT-MINERALS ORAL LIQUID PO SCH (10:41)
[2021-10-20] MEDS: BACITRACIN 15 GM TUBE TOPICAL OINTMENT TP SCH (21:26)
[2021-10-21] MEDS: busPIRone HCL 10 MG TABLET (FP) PO SCH ×3 (06:11→23:04)
[2021-10-21] MEDS ORDERED: ESCITALOPRAM OXALATE 10 MG TABLET ONE (09:56)
[2021-10-21] MEDS: MULTIVIT-MINERALS ORAL LIQUID PO SCH (09:58)
[2021-10-21] MEDS: ASPIRIN 81 MG CHEWABLE TABLETS PO SCH (09:58)
[2021-10-21] MEDS: AMINO ACIDS/PROTEIN HYDROLYS 30 ML LIQUID.PKT PO SCH (09:58)
[2021-10-21] MEDS: ESCITALOPRAM OXALATE 20 MG TABLET PO SCH (09:58)
[2021-10-21] MEDS: BACITRACIN 15 GM TUBE TOPICAL OINTMENT TP SCH ×2 (10:01→23:04)
[2021-10-21] MEDS: METOPROLOL TARTRATE 25 MG TABLET (FP) PO SCH ×2 (10:35→23:34)
[2021-10-21] MEDS ORDERED: FUROSEMIDE 40 MG/4 ML INJECTABLE VIAL IVPUSH ONE (20:41)
[2021-10-22] MEDS ORDERED: FUROSEMIDE 40 MG/4 ML INJECTABLE VIAL IVPUSH ONE (04:12)
[2021-10-22] MEDS: busPIRone HCL 10 MG TABLET (FP) PO SCH ×3 (05:29→21:20)
[2021-10-22] MEDS: AMINO ACIDS/PROTEIN HYDROLYS 30 ML LIQUID.PKT PO SCH (09:09)
[2021-10-22] MEDS ORDERED: ESCITALOPRAM OXALATE 10 MG TABLET ONE (09:31)
[2021-10-22] MEDS: ESCITALOPRAM OXALATE 20 MG TABLET PO SCH (10:09)
[2021-10-22] MEDS: METOPROLOL TARTRATE 25 MG TABLET (FP) PO SCH ×2 (10:09→21:20)
[2021-10-22] MEDS: MULTIVIT-MINERALS ORAL LIQUID PO SCH (10:09)
[2021-10-22] MEDS: BACITRACIN 15 GM TUBE TOPICAL OINTMENT TP SCH ×2 (10:10→21:21)
[2021-10-22] MEDS ORDERED: METOPROLOL TARTRATE 5 MG/5 ML VIAL IVPUSH PRN (22:38)
[2021-10-23] MEDS: busPIRone HCL 10 MG TABLET (FP) PO SCH ×3 (05:33→21:36)
[2021-10-23] MEDS: AMINO ACIDS/PROTEIN HYDROLYS 30 ML LIQUID.PKT PO SCH (09:00)
[2021-10-23] MEDS ORDERED: ESCITALOPRAM OXALATE 10 MG TABLET ONE (09:31)
[2021-10-23] MEDS: BACITRACIN 15 GM TUBE TOPICAL OINTMENT TP SCH ×2 (10:02→21:36)
[2021-10-23] MEDS: METOPROLOL TARTRATE 25 MG TABLET (FP) PO SCH ×2 (10:02→21:36)
[2021-10-23] MEDS: MULTIVIT-MINERALS ORAL LIQUID PO SCH (10:02)
[2021-10-23] MEDS: ESCITALOPRAM OXALATE 20 MG TABLET PO SCH (10:03)
[2021-10-24] MEDS: busPIRone HCL 10 MG TABLET (FP) PO SCH ×3 (06:13→21:38)
[2021-10-24] MEDS ORDERED: ESCITALOPRAM OXALATE 10 MG TABLET ONE (08:43)
[2021-10-24] MEDS: MULTIVIT-MINERALS ORAL LIQUID PO SCH (09:21)
[2021-10-24] MEDS: AMINO ACIDS/PROTEIN HYDROLYS 30 ML LIQUID.PKT PO SCH (09:21)
[2021-10-24] MEDS: ESCITALOPRAM OXALATE 20 MG TABLET PO SCH (09:21)
[2021-10-24] MEDS: METOPROLOL TARTRATE 25 MG TABLET (FP) PO SCH ×2 (09:21→21:38)
[2021-10-24] MEDS: BACITRACIN 15 GM TUBE TOPICAL OINTMENT TP SCH ×2 (09:21→21:50)
[2021-10-24] MEDS ORDERED: ACETAMINOPHEN 650 MG/20.3 ML ORAL SOLUTION (CUPS) PO ONE (10:00)
[2021-10-24 10:52] LABS: BLOOD UREA NITROGEN 24.4 mg/dL (7-18); CALCIUM 9.1 mg/dL (8.5-10.1)
[2021-10-24 10:53] LABS: ALBUMIN 2.2 g/dl (3.4-5.0)
[2021-10-24 10:56] LABS: CREATININE 0.8 mg/dL (0.55-1.3)
[2021-10-24 10:57] LABS: BILIRUBIN,TOTAL 0.5 mg/dL (0.2-1); TOT PROT 6.6 g/dl (6.4-8.2)
[2021-10-24 11:34] LABS: URINE APPEARANCE TURBID; URINE BILIRUBIN NEGATIVE (NEGATIVE); URINE COLOR YELLOW; URINE GLUCOSE (UA) NEGATIVE (NEGATIVE); URINE KETONE NEGATIVE (NEGATIVE)
[2021-10-24 11:35] LABS: PH,URINE > 9.0 (5.0-8.0); URINE LEUK ESTERASE 3+ (NEGATIVE); URINE NITRITE NEGATIVE (NEGATIVE); URINE PROTEIN 1+ (NEGATIVE); URINE UROBILINOGEN 0.2 mg/dL (0.2-1.0)
[2021-10-24 11:36] LABS: URINE RBC 42.1 /uL (0-23.9); URINE WBC 64.6 /uL (0-25.8)
[2021-10-24 11:37] LABS: HYALINE CASTS 736.3 /uL (0-3.1); URINE BACTERIA 39932.7 /uL (0-1359)
[2021-10-24] MEDS: ALBUTEROL SO4 0.083% IH SOL 2.5 MG/3 ML VIAL.NEB. NEB PRN ×3 (12:32→20:33)
[2021-10-24] MEDS: ACETYLCYSTEINE 20% 200MG/ML 4 ML VIAL *FOR ORAL / INH USE ONLY NEB SCH ×3 (12:32→20:32)
[2021-10-24 13:09] LABS: BASO % 0.1 % (0-2.0); EOS % 1.2 % (0-4.5); HEMATOCRIT 33.3 % (35.4-49); HEMOGLOBIN 10.9 GM/dL (11.7-16.9); LYMPH % 8.6 % (8-40); MCH 28.3 pg (25.7-33.7); MCHC 32.9 g/dl (32.0-35.9); MEAN CELL VOLUME 86.2 fl (80-96); MEAN PLT VOLUME 8.4 fl (7.5-11.1); MONO % 10.2 % (3.8-10.2); NEUT % 79.9 % (42.8-82.8); PLATELET COUNT 384 10^3/uL (134-434); RBC 3.86 M/mm3 (4.00-5.60); RDW 14.4 % (11.9-15.9); WHITE BLOOD COUNT 12.4 K/mm3 (4.0-10.0)
[2021-10-24] MEDS: FUROSEMIDE 40 MG/4 ML INJECTABLE VIAL IVPUSH SCH (13:43)
[2021-10-25] MEDS: busPIRone HCL 10 MG TABLET (FP) PO SCH ×3 (05:26→21:28)
[2021-10-25] MEDS: ACETYLCYSTEINE 20% 200MG/ML 4 ML VIAL *FOR ORAL / INH USE ONLY NEB SCH ×4 (08:17→20:46)
[2021-10-25 08:21] LABS: CALCIUM 9.1 mg/dL (8.5-10.1)
[2021-10-25 08:22] LABS: BLOOD UREA NITROGEN 29.9 mg/dL (7-18); MAGNESIUM 2.3 mg/dL (1.8-2.4)
[2021-10-25] MEDS ORDERED: ESCITALOPRAM OXALATE 10 MG TABLET ONE (09:45)
[2021-10-25] MEDS: AMINO ACIDS/PROTEIN HYDROLYS 30 ML LIQUID.PKT PO SCH (09:54)
[2021-10-25] MEDS: MULTIVIT-MINERALS ORAL LIQUID PO SCH (09:54)
[2021-10-25] MEDS: FUROSEMIDE 40 MG/4 ML INJECTABLE VIAL IVPUSH SCH (09:55)
[2021-10-25] MEDS: METOPROLOL TARTRATE 25 MG TABLET (FP) PO SCH ×2 (09:55→21:28)
[2021-10-25] MEDS: ESCITALOPRAM OXALATE 20 MG TABLET PO SCH (09:55)
[2021-10-25] MEDS: BACITRACIN 15 GM TUBE TOPICAL OINTMENT TP SCH ×2 (10:55→21:29)
[2021-10-25 11:05] LABS: ALBUMIN 2.2 g/dl (3.4-5.0)
[2021-10-25 11:10] LABS: BILIRUBIN,TOTAL 0.7 mg/dL (0.2-1); TOT PROT 6.8 g/dl (6.4-8.2)
[2021-10-25 11:23] LABS: BASO % 0.2 % (0-2.0); EOS % 0.4 % (0-4.5); HEMATOCRIT 34.7 % (35.4-49); HEMOGLOBIN 11.4 GM/dL (11.7-16.9); LYMPH % 6.7 % (8-40); MCH 28.4 pg (25.7-33.7); MEAN CELL VOLUME 86.1 fl (80-96); MEAN PLT VOLUME 9.2 fl (7.5-11.1); MONO % 9.2 % (3.8-10.2); NEUT % 83.5 % (42.8-82.8); PLATELET COUNT 440 10^3/uL (134-434); RBC 4.03 M/mm3 (4.00-5.60); RDW 14.8 % (11.9-15.9); WHITE BLOOD COUNT 15.2 K/mm3 (4.0-10.0)
[2021-10-25] MEDS ORDERED: DEXTROSE 5%-WATER - 50 ML IVPB ONE (11:37)
[2021-10-25] MEDS ORDERED: cefTRIAXone SODIUM 1 GM VIAL ONE (11:37)
[2021-10-25] MEDS: VANCOMYCIN 250 MG/5 ML ORAL SOLUTION NGT SCH ×2 (11:43→17:34)
[2021-10-25] MEDS: CEFTRIAXONE 1 GM in DEXTROSE 5%-WATER - 50 ML IVPB SCH (11:43)
[2021-10-25] MEDS: ACETAMINOPHEN 325 MG TABLET (FP) PO PRN (12:01)
[2021-10-25] MEDS: ALBUTEROL SO4 0.083% IH SOL 2.5 MG/3 ML VIAL.NEB. NEB PRN ×2 (12:15→16:28)
[2021-10-25] MEDS: BANATROL PLUS POWDER PACKET PO SCH (21:28)
[2021-10-26] MEDS: busPIRone HCL 10 MG TABLET (FP) PO SCH ×3 (05:53→22:11)
[2021-10-26] MEDS: ACETAMINOPHEN 325 MG TABLET (FP) PO PRN (05:59)
[2021-10-26 07:44] LABS: BLOOD UREA NITROGEN 33.2 mg/dL (7-18); CALCIUM 9.2 mg/dL (8.5-10.1); MAGNESIUM 2.3 mg/dL (1.8-2.4)
[2021-10-26 07:48] LABS: CREATININE 0.9 mg/dL (0.55-1.3); PHOSPHOROUS 3.6 mg/dL (2.5-4.9)
[2021-10-26] MEDS: ALBUTEROL SO4 0.083% IH SOL 2.5 MG/3 ML VIAL.NEB. NEB PRN ×4 (07:50→21:07)
[2021-10-26] MEDS: ACETYLCYSTEINE 20% 200MG/ML 4 ML VIAL *FOR ORAL / INH USE ONLY NEB SCH ×4 (07:50→21:07)
[2021-10-26] MEDS ORDERED: DEXTROSE 5%-WATER - 50 ML IVPB ONE (08:48)
[2021-10-26] MEDS ORDERED: ESCITALOPRAM OXALATE 10 MG TABLET ONE (08:48)
[2021-10-26] MEDS ORDERED: cefTRIAXone SODIUM 1 GM VIAL ONE (08:48)
[2021-10-26] MEDS: AMINO ACIDS/PROTEIN HYDROLYS 30 ML LIQUID.PKT PO SCH (08:50)
[2021-10-26] MEDS: ESCITALOPRAM OXALATE 20 MG TABLET PO SCH (09:00)
[2021-10-26] MEDS: FUROSEMIDE 40 MG/4 ML INJECTABLE VIAL IVPUSH SCH (09:00)
[2021-10-26] MEDS: METOPROLOL TARTRATE 25 MG TABLET (FP) PO SCH ×2 (09:00→22:11)
[2021-10-26] MEDS: MULTIVIT-MINERALS ORAL LIQUID PO SCH (09:00)
[2021-10-26] MEDS: BACITRACIN 15 GM TUBE TOPICAL OINTMENT TP SCH ×2 (09:01→22:11)
[2021-10-26] MEDS: BANATROL PLUS POWDER PACKET PO SCH (09:01)
[2021-10-26] MEDS: CEFTRIAXONE 1 GM in DEXTROSE 5%-WATER - 50 ML IVPB SCH (09:01)
[2021-10-26 11:30] LABS: HEMATOCRIT 34.8 % (35.4-49); HEMOGLOBIN 11.2 GM/dL (11.7-16.9); MCHC 32.1 g/dl (32.0-35.9); MEAN CELL VOLUME 87.3 fl (80-96); MEAN PLT VOLUME 9.1 fl (7.5-11.1); PLATELET COUNT 428 10^3/uL (134-434); RBC 3.99 M/mm3 (4.00-5.60); RDW 14.9 % (11.9-15.9); WHITE BLOOD COUNT 17.4 K/mm3 (4.0-10.0)
[2021-10-26 12:04] LABS: ANISOCYTOSIS 0; MACROCYTOSIS 0
[2021-10-27] MEDS: SCOPOLAMINE HYDROBROMIDE 1 PATCH PATCH.TD72 TD SCH (01:12)
[2021-10-27] MEDS: busPIRone HCL 10 MG TABLET (FP) PO SCH ×3 (05:30→21:18)
[2021-10-27] MEDS ORDERED: ALBUTEROL SO4 2.5/IPRATROPIUM 0.5 INH SOL 3 ML VIAL.NEB. NEB SCH (08:00)
[2021-10-27] MEDS ORDERED: ALBUTEROL SO4 0.083% IH SOL 2.5 MG/3 ML VIAL.NEB. NEB ONE (08:18)
[2021-10-27] MEDS: ACETYLCYSTEINE 20% 200MG/ML 4 ML VIAL *FOR ORAL / INH USE ONLY NEB SCH ×4 (08:34→20:25)
[2021-10-27 08:35] LABS: BASO % 0.3 % (0-2.0); HEMATOCRIT 34.9 % (35.4-49); HEMOGLOBIN 11.4 GM/dL (11.7-16.9); LYMPH % 8.3 % (8-40); MCH 28.1 pg (25.7-33.7); MCHC 32.8 g/dl (32.0-35.9); MEAN CELL VOLUME 85.8 fl (80-96); MEAN PLT VOLUME 8.2 fl (7.5-11.1); NEUT % 81.4 % (42.8-82.8); PLATELET COUNT 390 10^3/uL (134-434); RBC 4.06 M/mm3 (4.00-5.60); RDW 14.7 % (11.9-15.9); WHITE BLOOD COUNT 13.1 K/mm3 (4.0-10.0)
[2021-10-27 09:07] LABS: BASO % 0.2 % (0-2.0); EOS % 2.1 % (0-4.5); HEMATOCRIT 35.3 % (35.4-49); HEMOGLOBIN 11.7 GM/dL (11.7-16.9); LYMPH % 8.5 % (8-40); MCH 28.7 pg (25.7-33.7); MCHC 33.2 g/dl (32.0-35.9); MEAN CELL VOLUME 86.3 fl (80-96); MEAN PLT VOLUME 8.4 fl (7.5-11.1); MONO % 9.4 % (3.8-10.2); NEUT % 79.8 % (42.8-82.8); PLATELET COUNT 361 10^3/uL (134-434); RBC 4.09 M/mm3 (4.00-5.60); RDW 14.7 % (11.9-15.9); WHITE BLOOD COUNT 13.2 K/mm3 (4.0-10.0)
[2021-10-27] MEDS ORDERED: ESCITALOPRAM OXALATE 10 MG TABLET ONE (10:19)
[2021-10-27] MEDS ORDERED: cefTRIAXone SODIUM 1 GM VIAL ONE (10:20)
[2021-10-27] MEDS ORDERED: DEXTROSE 5%-WATER - 50 ML IVPB ONE (10:20)
[2021-10-27] MEDS: MULTIVIT-MINERALS ORAL LIQUID PO SCH (10:28)
[2021-10-27] MEDS: CEFTRIAXONE 1 GM in DEXTROSE 5%-WATER - 50 ML IVPB SCH (10:28)
[2021-10-27] MEDS: AMINO ACIDS/PROTEIN HYDROLYS 30 ML LIQUID.PKT PO SCH (10:28)
[2021-10-27] MEDS: BACITRACIN 15 GM TUBE TOPICAL OINTMENT TP SCH ×2 (10:28→21:20)
[2021-10-27] MEDS: FUROSEMIDE 40 MG/4 ML INJECTABLE VIAL IVPUSH SCH (10:29)
[2021-10-27] MEDS: METOPROLOL TARTRATE 25 MG TABLET (FP) PO SCH ×2 (10:30→21:18)
[2021-10-27] MEDS: ESCITALOPRAM OXALATE 20 MG TABLET PO SCH (10:30)
[2021-10-27] MEDS: ALBUTEROL SO4 0.083% IH SOL 2.5 MG/3 ML VIAL.NEB. NEB SCH ×3 (12:36→20:24)
[2021-10-27] MEDS: ERTAPENEM SODIUM 0.5 GM in SODIUM CHLORIDE 50 ML IVPB SCH (18:43)
[2021-10-27] MEDS: ACETAMINOPHEN 325 MG TABLET (FP) PO PRN (21:18)
[2021-10-28] MEDS: busPIRone HCL 10 MG TABLET (FP) PO SCH ×3 (06:04→21:16)
[2021-10-28] MEDS ORDERED: METOPROLOL TARTRATE 5 MG/5 ML VIAL IVPUSH PRN (06:48)
[2021-10-28] MEDS: ACETYLCYSTEINE 20% 200MG/ML 4 ML VIAL *FOR ORAL / INH USE ONLY NEB SCH ×4 (07:32→20:32)
[2021-10-28] MEDS: ALBUTEROL SO4 0.083% IH SOL 2.5 MG/3 ML VIAL.NEB. NEB SCH ×4 (07:32→20:32)
[2021-10-28] MEDS ORDERED: ACETAMINOPHEN 1000 MG/100 ML BAG IVPB PRN (08:14)
[2021-10-28] MEDS: AMINO ACIDS/PROTEIN HYDROLYS 30 ML LIQUID.PKT PO SCH (08:45)
[2021-10-28 09:15] LABS: BASO % 0.3 % (0-2.0); EOS % 2.1 % (0-4.5); HEMOGLOBIN 11.8 GM/dL (11.7-16.9); LYMPH % 6.8 % (8-40); MCH 28.3 pg (25.7-33.7); MCHC 32.9 g/dl (32.0-35.9); MEAN CELL VOLUME 86.1 fl (80-96); MEAN PLT VOLUME 8.1 fl (7.5-11.1); MONO % 8.2 % (3.8-10.2); NEUT % 82.6 % (42.8-82.8); PLATELET COUNT 441 10^3/uL (134-434); RBC 4.19 M/mm3 (4.00-5.60); RDW 14.3 % (11.9-15.9); WHITE BLOOD COUNT 14.8 K/mm3 (4.0-10.0)
[2021-10-28 09:38] LABS: ALBUMIN 2.2 g/dl (3.4-5.0); BLOOD UREA NITROGEN 42.7 mg/dL (7-18)
[2021-10-28 09:39] LABS: TOT PROT 7.2 g/dl (6.4-8.2)
[2021-10-28 09:40] LABS: BILIRUBIN,TOTAL 0.4 mg/dL (0.2-1); CALCIUM 9.4 mg/dL (8.5-10.1)
[2021-10-28] MEDS ORDERED: ESCITALOPRAM OXALATE 10 MG TABLET ONE (09:43)
[2021-10-28] MEDS: BACITRACIN 15 GM TUBE TOPICAL OINTMENT TP SCH ×2 (10:16→21:17)
[2021-10-28] MEDS: ERTAPENEM SODIUM 0.5 GM in SODIUM CHLORIDE 50 ML IVPB SCH (10:17)
[2021-10-28] MEDS: FUROSEMIDE 40 MG/4 ML INJECTABLE VIAL IVPUSH SCH (10:17)
[2021-10-28] MEDS: ESCITALOPRAM OXALATE 20 MG TABLET PO SCH (10:18)
[2021-10-28] MEDS: METOPROLOL TARTRATE 5 MG/5 ML VIAL IVPUSH PRN (10:18)
[2021-10-28] MEDS: METOPROLOL TARTRATE 25 MG TABLET (FP) PO SCH ×2 (10:18→21:16)
[2021-10-28] MEDS: MULTIVIT-MINERALS ORAL LIQUID PO SCH (10:19)
[2021-10-29] MEDS: METOPROLOL TARTRATE 5 MG/5 ML VIAL IVPUSH PRN (02:18)
[2021-10-29] MEDS: busPIRone HCL 10 MG TABLET (FP) PO SCH ×3 (06:14→21:58)
[2021-10-29] MEDS: ACETYLCYSTEINE 20% 200MG/ML 4 ML VIAL *FOR ORAL / INH USE ONLY NEB SCH ×4 (07:35→20:15)
[2021-10-29] MEDS: ALBUTEROL SO4 0.083% IH SOL 2.5 MG/3 ML VIAL.NEB. NEB SCH ×4 (07:35→20:15)
[2021-10-29] MEDS: BACITRACIN 15 GM TUBE TOPICAL OINTMENT TP SCH ×2 (09:30→21:58)
[2021-10-29] MEDS: ERTAPENEM SODIUM 0.5 GM in SODIUM CHLORIDE 50 ML IVPB SCH (09:35)
[2021-10-29] MEDS: FUROSEMIDE 40 MG/4 ML INJECTABLE VIAL IVPUSH SCH (09:35)
[2021-10-29] MEDS ORDERED: GLUCAGON 1 MG KIT ONE (09:36)
[2021-10-29] MEDS: METOPROLOL TARTRATE 25 MG TABLET (FP) PO SCH ×2 (09:59→21:58)
[2021-10-29] MEDS: AMINO ACIDS/PROTEIN HYDROLYS 30 ML LIQUID.PKT PO SCH (11:27)
[2021-10-29] MEDS: ESCITALOPRAM OXALATE 20 MG TABLET PO SCH (11:28)
[2021-10-29] MEDS: MULTIVIT-MINERALS ORAL LIQUID PO SCH (11:28)
[2021-10-29] MEDS ORDERED: GLUCAGON 1 MG KIT IVPUSH ONE (11:45)
[2021-10-29] MEDS ORDERED: ACETAMINOPHEN 1000 MG/100 ML BAG IVPB ONE (17:23)
[2021-10-29] MEDS: AMINO ACIDS/PROTEIN HYDROLYS 30 ML LIQUID.PKT GT SCH (17:34)
[2021-10-29] MEDS: ACETAMINOPHEN 325 MG TABLET (FP) PO PRN (21:57)
[2021-10-30] MEDS: SCOPOLAMINE HYDROBROMIDE 1 PATCH PATCH.TD72 TD SCH (00:55)
[2021-10-30] MEDS: busPIRone HCL 10 MG TABLET (FP) PO SCH ×3 (05:30→21:58)
[2021-10-30] MEDS: ACETYLCYSTEINE 20% 200MG/ML 4 ML VIAL *FOR ORAL / INH USE ONLY NEB SCH ×4 (07:20→20:16)
[2021-10-30] MEDS: ALBUTEROL SO4 0.083% IH SOL 2.5 MG/3 ML VIAL.NEB. NEB SCH ×4 (07:20→20:17)
[2021-10-30 08:40] LABS: BASO % 0.3 % (0-2.0); CALCIUM 9.6 mg/dL (8.5-10.1); EOS % 0.6 % (0-4.5); HEMATOCRIT 36.1 % (35.4-49); HEMOGLOBIN 11.7 GM/dL (11.7-16.9); LYMPH % 8.3 % (8-40); MCHC 32.4 g/dl (32.0-35.9); MEAN CELL VOLUME 86.4 fl (80-96); MEAN PLT VOLUME 8.5 fl (7.5-11.1); MONO % 6.8 % (3.8-10.2); PLATELET COUNT 475 10^3/uL (134-434); RBC 4.18 M/mm3 (4.00-5.60); RDW 14.8 % (11.9-15.9); WHITE BLOOD COUNT 15.5 K/mm3 (4.0-10.0)
[2021-10-30 08:41] LABS: ALBUMIN 2.5 g/dl (3.4-5.0); BLOOD UREA NITROGEN 46.7 mg/dL (7-18)
[2021-10-30 08:44] LABS: BILIRUBIN,TOTAL 0.6 mg/dL (0.2-1); TOT PROT 7.4 g/dl (6.4-8.2)
[2021-10-30] MEDS ORDERED: ESCITALOPRAM OXALATE 10 MG TABLET ONE (10:55)
[2021-10-30] MEDS: AMINO ACIDS/PROTEIN HYDROLYS 30 ML LIQUID.PKT GT SCH ×2 (11:21→18:25)
[2021-10-30] MEDS: BACITRACIN 15 GM TUBE TOPICAL OINTMENT TP SCH ×2 (11:21→22:14)
[2021-10-30] MEDS: MULTIVIT-MINERALS ORAL LIQUID PO SCH (11:21)
[2021-10-30] MEDS: ERTAPENEM SODIUM 0.5 GM in SODIUM CHLORIDE 50 ML IVPB SCH (11:22)
[2021-10-30] MEDS: ESCITALOPRAM OXALATE 20 MG TABLET PO SCH (11:22)
[2021-10-30] MEDS: QUEtiapine FUMARATE 25 MG TABLET PO SCH ×2 (11:23→21:58)
[2021-10-30] MEDS: METOPROLOL TARTRATE 25 MG TABLET (FP) PO SCH ×2 (11:23→21:58)
[2021-10-30] MEDS: FUROSEMIDE 40 MG/5 ML UNIT-DOSE CUP PEG SCH (12:57)
[2021-10-30] MEDS: METOPROLOL TARTRATE 5 MG/5 ML VIAL IVPUSH PRN (19:01)
[2021-10-31] MEDS: busPIRone HCL 10 MG TABLET (FP) PO SCH ×3 (05:49→22:43)
[2021-10-31] MEDS: METOPROLOL TARTRATE 5 MG/5 ML VIAL IVPUSH PRN ×3 (06:03→19:54)
[2021-10-31] MEDS: ACETYLCYSTEINE 20% 200MG/ML 4 ML VIAL *FOR ORAL / INH USE ONLY NEB SCH ×4 (08:57→19:46)
[2021-10-31] MEDS: ALBUTEROL SO4 0.083% IH SOL 2.5 MG/3 ML VIAL.NEB. NEB SCH ×4 (08:58→19:47)
[2021-10-31] MEDS ORDERED: ESCITALOPRAM OXALATE 10 MG TABLET ONE (09:00)
[2021-10-31 09:10] LABS: ALBUMIN 2.6 g/dl (3.4-5.0); BLOOD UREA NITROGEN 56.2 mg/dL (7-18); CALCIUM 9.9 mg/dL (8.5-10.1)
[2021-10-31 09:12] LABS: HEMOGLOBIN 12.2 GM/dL (11.7-16.9); MCH 27.9 pg (25.7-33.7); MCHC 32.1 g/dl (32.0-35.9); MEAN PLT VOLUME 8.7 fl (7.5-11.1); PLATELET COUNT 460 10^3/uL (134-434); RBC 4.37 M/mm3 (4.00-5.60); RDW 14.9 % (11.9-15.9); WHITE BLOOD COUNT 20.4 K/mm3 (4.0-10.0)
[2021-10-31 09:14] LABS: BILIRUBIN,TOTAL 0.7 mg/dL (0.2-1)
[2021-10-31 09:15] LABS: TOT PROT 7.5 g/dl (6.4-8.2)
[2021-10-31] MEDS: ACETAMINOPHEN 325 MG TABLET (FP) PO PRN ×2 (10:25→22:43)
[2021-10-31] MEDS: FUROSEMIDE 40 MG/5 ML UNIT-DOSE CUP PEG SCH (10:26)
[2021-10-31] MEDS: ESCITALOPRAM OXALATE 20 MG TABLET PO SCH (10:26)
[2021-10-31] MEDS: METOPROLOL TARTRATE 25 MG TABLET (FP) PO SCH ×2 (10:26→22:43)
[2021-10-31] MEDS: MULTIVIT-MINERALS ORAL LIQUID PO SCH (10:26)
[2021-10-31] MEDS: QUEtiapine FUMARATE 25 MG TABLET PO SCH ×2 (10:27→22:44)
[2021-10-31] MEDS: BACITRACIN 15 GM TUBE TOPICAL OINTMENT TP SCH ×2 (10:27→22:44)
[2021-10-31] MEDS: ERTAPENEM SODIUM 0.5 GM in SODIUM CHLORIDE 50 ML IVPB SCH (10:27)
[2021-10-31] MEDS: AMINO ACIDS/PROTEIN HYDROLYS 30 ML LIQUID.PKT GT SCH ×2 (10:27→16:56)
[2021-10-31 11:30] LABS: ANISOCYTOSIS 0; HELMET CELLS 0; HOWELL-JOLLY BODIES 0; MACROCYTOSIS 0; OVALOCYTE 0; ROULEAU 0; SICKELED CELLS 0; TARGET CELLS 0; TEAR DROP CELLS 0; TOXIC GRANULATION 0
[2021-10-31] MEDS ORDERED: SODIUM CHLORIDE 250 ML IV STA (20:59)
[2021-10-31] MEDS: DEXTROSE 5%-NORMAL SALINE 1,000 ML IV SCH (22:00)
[2021-11-01] MEDS: ACETAMINOPHEN 325 MG TABLET (FP) PO PRN ×2 (05:50→11:19)
[2021-11-01] MEDS: busPIRone HCL 10 MG TABLET (FP) PO SCH ×3 (05:50→21:47)
[2021-11-01] MEDS: METOPROLOL TARTRATE 5 MG/5 ML VIAL IVPUSH PRN (05:50)
[2021-11-01 08:29] LABS: CALCIUM 9.4 mg/dL (8.5-10.1)
[2021-11-01 08:33] LABS: CREATININE 1.3 mg/dL (0.55-1.3)
[2021-11-01] MEDS: ALBUTEROL SO4 0.083% IH SOL 2.5 MG/3 ML VIAL.NEB. NEB SCH (08:45)
[2021-11-01] MEDS: ACETYLCYSTEINE 20% 200MG/ML 4 ML VIAL *FOR ORAL / INH USE ONLY NEB SCH ×4 (08:45→20:05)
[2021-11-01] MEDS ORDERED: POTASSIUM CHLORIDE ORAL LIQUID 20 MEQ/15 ML GT ONE (09:27)
[2021-11-01] MEDS ORDERED: KCL 10 MEQ IVPB 10 MEQ/100 ML INFUS.BAG IVPB SCH (09:45)
[2021-11-01 10:12] LABS: MAGNESIUM 2.7 mg/dL (1.8-2.4)
[2021-11-01] MEDS ORDERED: ESCITALOPRAM OXALATE 10 MG TABLET ONE (10:31)
[2021-11-01] MEDS: BACITRACIN 15 GM TUBE TOPICAL OINTMENT TP SCH ×2 (10:36→21:49)
[2021-11-01] MEDS: ERTAPENEM SODIUM 0.5 GM in SODIUM CHLORIDE 50 ML IVPB SCH (10:37)
[2021-11-01] MEDS: QUEtiapine FUMARATE 25 MG TABLET PO SCH ×2 (11:03→21:47)
[2021-11-01] MEDS: FUROSEMIDE 40 MG/5 ML UNIT-DOSE CUP PEG SCH (11:04)
[2021-11-01] MEDS: ESCITALOPRAM OXALATE 20 MG TABLET PO SCH (11:05)
[2021-11-01] MEDS: MULTIVIT-MINERALS ORAL LIQUID PO SCH (11:05)
[2021-11-01] MEDS: AMINO ACIDS/PROTEIN HYDROLYS 30 ML LIQUID.PKT GT SCH ×2 (11:20→17:33)
[2021-11-01] MEDS: METOPROLOL TARTRATE 25 MG TABLET (FP) PO SCH ×2 (13:01→21:47)
[2021-11-01] MEDS ORDERED: METOPROLOL TARTRATE 25 MG TABLET (FP) PO SCH (14:00)
[2021-11-01] MEDS: DEXTROSE 5%-NORMAL SALINE 1,000 ML IV SCH (21:49)
[2021-11-02] MEDS: SCOPOLAMINE HYDROBROMIDE 1 PATCH PATCH.TD72 TD SCH (01:04)
[2021-11-02] MEDS: METOPROLOL TARTRATE 25 MG TABLET (FP) PO SCH ×3 (05:02→21:07)
[2021-11-02] MEDS: busPIRone HCL 10 MG TABLET (FP) PO SCH ×3 (05:02→21:07)
[2021-11-02] MEDS: ACETAMINOPHEN 325 MG TABLET (FP) PO PRN (05:02)
[2021-11-02 08:25] LABS: HEMOGLOBIN 11.8 GM/dL (11.7-16.9); MCH 28.1 pg (25.7-33.7); MCHC 31.9 g/dl (32.0-35.9); MEAN PLT VOLUME 8.1 fl (7.5-11.1); PLATELET COUNT 391 10^3/uL (134-434); RBC 4.21 M/mm3 (4.00-5.60); RDW 14.8 % (11.9-15.9); WHITE BLOOD COUNT 14.7 K/mm3 (4.0-10.0)
[2021-11-02] MEDS: ACETYLCYSTEINE 20% 200MG/ML 4 ML VIAL *FOR ORAL / INH USE ONLY NEB SCH ×2 (08:51→12:00)
[2021-11-02 08:53] LABS: BLOOD UREA NITROGEN 47.5 mg/dL (7-18); CALCIUM 9.4 mg/dL (8.5-10.1); CREATININE 0.9 mg/dL (0.55-1.3); MAGNESIUM 2.6 mg/dL (1.8-2.4)
[2021-11-02] MEDS ORDERED: ESCITALOPRAM OXALATE 10 MG TABLET ONE (08:59)
[2021-11-02] MEDS: QUEtiapine FUMARATE 25 MG TABLET PO SCH ×2 (09:18→21:07)
[2021-11-02] MEDS: MULTIVIT-MINERALS ORAL LIQUID PO SCH (09:20)
[2021-11-02] MEDS: ESCITALOPRAM OXALATE 20 MG TABLET PO SCH (09:21)
[2021-11-02] MEDS: BACITRACIN 15 GM TUBE TOPICAL OINTMENT TP SCH ×2 (09:23→21:07)
[2021-11-02] MEDS: AMINO ACIDS/PROTEIN HYDROLYS 30 ML LIQUID.PKT GT SCH ×2 (09:23→17:51)
[2021-11-02] MEDS: ERTAPENEM SODIUM 0.5 GM in SODIUM CHLORIDE 50 ML IVPB SCH (09:36)
[2021-11-02] MEDS ORDERED: DEXTROSE 5%-WATER - 1,000 ML with POTASSIUM CHLORIDE 20 MEQ IV SCH (10:15)
[2021-11-02] MEDS: POTASSIUM CHLORIDE 20 MEQ in DEXTROSE 5%-WATER - 1,000 ML IV SCH (11:37)
[2021-11-02] MEDS: ALBUTEROL SO4 2.5/IPRATROPIUM 0.5 INH SOL 3 ML VIAL.NEB. NEB SCH ×2 (16:30→20:00)
[2021-11-03] MEDS: POTASSIUM CHLORIDE 20 MEQ in DEXTROSE 5%-WATER - 1,000 ML IV SCH ×3 (00:45→20:19)
[2021-11-03] MEDS: ACETAMINOPHEN 325 MG TABLET (FP) PO PRN ×2 (00:46→21:11)
[2021-11-03] MEDS: METOPROLOL TARTRATE 25 MG TABLET (FP) PO SCH ×3 (05:10→21:11)
[2021-11-03] MEDS: busPIRone HCL 10 MG TABLET (FP) PO SCH ×3 (05:10→21:11)
[2021-11-03 08:27] LABS: CALCIUM 9.1 mg/dL (8.5-10.1)
[2021-11-03 08:28] LABS: ALBUMIN 2.4 g/dl (3.4-5.0)
[2021-11-03 08:29] LABS: BLOOD UREA NITROGEN 41.4 mg/dL (7-18)
[2021-11-03 08:31] LABS: CREATININE 0.9 mg/dL (0.55-1.3)
[2021-11-03 08:32] LABS: BILIRUBIN,TOTAL 0.6 mg/dL (0.2-1); TOT PROT 6.6 g/dl (6.4-8.2)
[2021-11-03] MEDS: ALBUTEROL SO4 2.5/IPRATROPIUM 0.5 INH SOL 3 ML VIAL.NEB. NEB SCH ×4 (08:35→21:11)
[2021-11-03] MEDS ORDERED: ESCITALOPRAM OXALATE 10 MG TABLET ONE (09:12)
[2021-11-03] MEDS: ESCITALOPRAM OXALATE 20 MG TABLET PO SCH (09:19)
[2021-11-03] MEDS: QUEtiapine FUMARATE 25 MG TABLET PO SCH ×2 (09:20→21:11)
[2021-11-03] MEDS: MULTIVIT-MINERALS ORAL LIQUID PO SCH (09:21)
[2021-11-03] MEDS: ERTAPENEM SODIUM 0.5 GM in SODIUM CHLORIDE 50 ML IVPB SCH (09:23)
[2021-11-03] MEDS: AMINO ACIDS/PROTEIN HYDROLYS 30 ML LIQUID.PKT GT SCH ×2 (09:23→17:12)
[2021-11-03] MEDS: BACITRACIN 15 GM TUBE TOPICAL OINTMENT TP SCH ×2 (15:24→21:11)
[2021-11-04] MEDS: busPIRone HCL 10 MG TABLET (FP) PO SCH ×3 (05:22→22:12)
[2021-11-04] MEDS: POTASSIUM CHLORIDE 20 MEQ in DEXTROSE 5%-WATER - 1,000 ML IV SCH (05:22)
[2021-11-04] MEDS: METOPROLOL TARTRATE 25 MG TABLET (FP) PO SCH ×3 (05:22→22:12)
[2021-11-04 07:50] LABS: BASO % 0.2 % (0-2.0); EOS % 2.4 % (0-4.5); HEMATOCRIT 36.2 % (35.4-49); HEMOGLOBIN 11.6 GM/dL (11.7-16.9); LYMPH % 13.3 % (8-40); MCH 28.1 pg (25.7-33.7); MCHC 31.9 g/dl (32.0-35.9); MEAN PLT VOLUME 8.4 fl (7.5-11.1); MONO % 8.1 % (3.8-10.2); PLATELET COUNT 339 10^3/uL (134-434); RBC 4.12 M/mm3 (4.00-5.60); RDW 14.9 % (11.9-15.9); WHITE BLOOD COUNT 15.3 K/mm3 (4.0-10.0)
[2021-11-04] MEDS: ALBUTEROL SO4 2.5/IPRATROPIUM 0.5 INH SOL 3 ML VIAL.NEB. NEB SCH ×4 (08:12→20:49)
[2021-11-04 08:17] LABS: CALCIUM 8.8 mg/dL (8.5-10.1)
[2021-11-04 08:18] LABS: ALBUMIN 2.4 g/dl (3.4-5.0); BLOOD UREA NITROGEN 35.6 mg/dL (7-18)
[2021-11-04 08:21] LABS: CREATININE 0.8 mg/dL (0.55-1.3)
[2021-11-04 08:22] LABS: BILIRUBIN,TOTAL 0.9 mg/dL (0.2-1); TOT PROT 6.5 g/dl (6.4-8.2)
[2021-11-04] MEDS ORDERED: ESCITALOPRAM OXALATE 10 MG TABLET ONE (09:00)
[2021-11-04] MEDS: AMINO ACIDS/PROTEIN HYDROLYS 30 ML LIQUID.PKT GT SCH ×2 (10:20→17:32)
[2021-11-04] MEDS: ACETAMINOPHEN 325 MG TABLET (FP) PO PRN ×2 (10:21→22:12)
[2021-11-04] MEDS: ESCITALOPRAM OXALATE 20 MG TABLET PO SCH (10:21)
[2021-11-04] MEDS: MULTIVIT-MINERALS ORAL LIQUID PO SCH (10:21)
[2021-11-04] MEDS: BACITRACIN 15 GM TUBE TOPICAL OINTMENT TP SCH ×2 (10:22→22:14)
[2021-11-04] MEDS: QUEtiapine FUMARATE 25 MG TABLET PO SCH ×2 (10:25→22:12)
[2021-11-05] MEDS: SCOPOLAMINE HYDROBROMIDE 1 PATCH PATCH.TD72 TD SCH (01:47)
[2021-11-05] MEDS: busPIRone HCL 10 MG TABLET (FP) PO SCH ×3 (05:55→22:21)
[2021-11-05] MEDS: METOPROLOL TARTRATE 25 MG TABLET (FP) PO SCH ×3 (05:56→22:21)
[2021-11-05] MEDS: ALBUTEROL SO4 2.5/IPRATROPIUM 0.5 INH SOL 3 ML VIAL.NEB. NEB SCH ×4 (07:48→20:05)
[2021-11-05] MEDS ORDERED: ESCITALOPRAM OXALATE 10 MG TABLET ONE (09:56)
[2021-11-05] MEDS: QUEtiapine FUMARATE 25 MG TABLET PO SCH ×2 (09:59→22:20)
[2021-11-05] MEDS: AMINO ACIDS/PROTEIN HYDROLYS 30 ML LIQUID.PKT GT SCH ×2 (09:59→17:59)
[2021-11-05] MEDS: ESCITALOPRAM OXALATE 20 MG TABLET PO SCH (09:59)
[2021-11-05] MEDS: BACITRACIN 15 GM TUBE TOPICAL OINTMENT TP SCH ×2 (10:00→22:21)
[2021-11-05] MEDS: MULTIVIT-MINERALS ORAL LIQUID PO SCH (10:00)
[2021-11-06] MEDS: METOPROLOL TARTRATE 25 MG TABLET (FP) PO SCH ×2 (06:04→14:57)
[2021-11-06] MEDS: busPIRone HCL 10 MG TABLET (FP) PO SCH ×2 (06:04→14:57)
[2021-11-06 07:19] VITALS: RESP 20
[2021-11-06] MEDS: ALBUTEROL SO4 2.5/IPRATROPIUM 0.5 INH SOL 3 ML VIAL.NEB. NEB SCH ×4 (07:28→20:21)
[2021-11-06] MEDS: AMINO ACIDS/PROTEIN HYDROLYS 30 ML LIQUID.PKT GT SCH ×2 (08:40→18:20)
[2021-11-06 08:57] LABS: CALCIUM 8.8 mg/dL (8.5-10.1)
[2021-11-06 08:58] LABS: ALBUMIN 2.2 g/dl (3.4-5.0); BLOOD UREA NITROGEN 29.5 mg/dL (7-18)
[2021-11-06 09:01] LABS: CREATININE 0.8 mg/dL (0.55-1.3)
[2021-11-06 09:02] LABS: BILIRUBIN,TOTAL 0.5 mg/dL (0.2-1)
[2021-11-06] MEDS ORDERED: ESCITALOPRAM OXALATE 10 MG TABLET ONE ×2 (09:17→09:19)
[2021-11-06] MEDS: QUEtiapine FUMARATE 25 MG TABLET PO SCH (09:22)
[2021-11-06] MEDS: MULTIVIT-MINERALS ORAL LIQUID PO SCH (09:22)
[2021-11-06] MEDS: ESCITALOPRAM OXALATE 20 MG TABLET PO SCH (09:22)
[2021-11-06] MEDS: BACITRACIN 15 GM TUBE TOPICAL OINTMENT TP SCH (10:30)
[2021-11-06 20:18] VITALS: BP 149/99; PULSE 100; TEMP 98.4
== END 2021-11-06 20:53 | DRG 871 ==
LOC: JER 10:43 → JERBED 14:34 → J4W 10-06 18:44 → J4S 10-15 16:58
PROVIDERS: ADMIT Internal Medicine; ATTEND Family Medicine
PROC: 0DH63UZ Insertion of Feeding Device into Stomach, Percutaneous Approach (ICD-10-PCS; principal; 2021-10-29)
DX: A41.89 Other specified sepsis (principal); J96.01 Acute respiratory failure with hypoxia; J18.9 Pneumonia, unspecified organism; G93.41 Metabolic encephalopathy; N39.0 Urinary tract infection, site not specified; N17.9 Acute kidney failure, unspecified; J44.1 Chronic obstructive pulmonary disease with (acute) exacerbation; E87.0 Hyperosmolality and hypernatremia; I50.32 Chronic diastolic (congestive) heart failure; Z68.1 Body mass index [BMI] 19.9 or less, adult; J44.9 Chronic obstructive pulmonary disease, unspecified; N40.0 Benign prostatic hyperplasia without lower urinary tract symptoms; F03.90 Unspecified dementia, unspecified severity, without behavioral disturbance, psychotic disturbance, mood disturbance, and anxiety; R50.9 Fever, unspecified; I11.0 Hypertensive heart disease with heart failure; I48.91 Unspecified atrial fibrillation; R13.10 Dysphagia, unspecified; B96.1 Klebsiella pneumoniae [K. pneumoniae] as the cause of diseases classified elsewhere; R62.7 Adult failure to thrive; R19.7 Diarrhea, unspecified; Z95.1 Presence of aortocoronary bypass graft
CPT/HCPCS: 0241U-QW; 36415; 36600; 49440; 49465; 71045-TC-FY; 74018-TC-FY; 80048; 80053; 80061; 81003; 82553; 82803; 82962; 83605; 83735; 84100; 84439; 84443; 84484; 85025; 85027; 85610; 85730; 86850; 86900; 86901; 87040; 87086; 87186; 87324; 87449; 87899; 93005; 93010; 94640; 94660; 97161-GP; 99285-25; C9803-CS; J1644; U0003; U0005